=== PATIENT | female | born 1985 | race Caucasian/White ===

== ENCOUNTER 2022-03-18 10:00 | Outpatient (CLI) | payer MEDICAID, SELFPAY ==
[2022-03-18 11:57] LABS: Glucose 1 Hour PP 50gm Dose 204 mg/dL
[2022-03-18 12:34] LABS: HIV 1/2 Ab P24 Ag Result Negative (Negative)
[2022-03-18 12:47] LABS: Hepatitis B Surface Antigen Negative (Negative); Rubella IgG Antibody 70.4 IU/ML
[2022-03-21 11:46] LABS: CMV IgG Antibody <0.60 U/mL (<0.60)
== END 2022-03-18 10:01 | disposition home or self-care (01) ==
LOC: ANHLAB 10:02
PROVIDERS: Visit Provider Obstetrics & Gynecology
DX: N94.89 Other specified conditions associated with female genital organs and menstrual cycle (principal)
CPT/HCPCS: 36415; 82947; 84702; 86644; 86703; 86747; 86762; 86850; 87086; 87340; G0432

== ENCOUNTER 2022-03-21 13:51 | Outpatient (CLI) | payer MEDICAID, SELFPAY | END 2022-03-21 13:52 | disposition home or self-care (01) | LOC: ANHLAB 13:52 | PROVIDERS: Visit Provider Obstetrics & Gynecology | DX: R73.09 Other abnormal glucose (principal); Z34.90 Encounter for supervision of normal pregnancy, unspecified, unspecified trimester; Z3A.00 Weeks of gestation of pregnancy not specified | CPT/HCPCS: 36415; 83036 ==

== ENCOUNTER 2022-03-30 11:15 | Outpatient (RCR) | payer MEDICAID, SELFPAY ==
[2022-03-30 11:46] LABS: Basophils Percent Auto 0.3 % (0.2-1.2); Eosinophils Absolute Auto 0.2 K/mm3 (0-0.3); Eosinophils Percent Auto 1.3 % (0-4.4); Hematocrit 29.4 % (37.0-47.0); Hemoglobin 9.9 g/dL (12.0-15.0); Immature Granulocyte Absolute 0.09 K/mm3 (0.00-0.031); Immature Granulocyte Percent A 0.8 % (0-0.5); Lymphocytes Percent Auto 15.2 % (18.3-44.2); Mean Corpuscular HGB Conc 33.7 g/dl (32-36); Mean Corpuscular Hemoglobin 29.6 pg (26-34); Mean Corpuscular Volume 87.8 fl (80-100); Mean Platelet Volume 9.2 fl (7.4-10.4); Monocytes Absolute Auto 0.7 K/mm3 (0.1-0.6); Monocytes Percent Auto 6.1 % (2.6-8.5); Neutrophils Absolute Auto 8.6 K/mm3 (1.3-6.7); Neutrophils Percent Auto 76.3 % (45.5-73.1); Platelet Count Result 368 k/mm3 (150-375); Red Blood Count 3.35 M/mm3 (4.2-5.4); White Blood Count 11.2 K/mm3 (4.5-10.0)
[2022-03-31 07:25] LABS: Rapid Plasma Reagin Non-Reactive (NonReactive)
[2022-03-31] MEDS: RHO(D) IMMUNE GLOBULIN 300 MCG/2 ML SYRINGE IM (14:08)
== END 2022-03-31 15:00 | disposition home or self-care (01) ==
LOC: ANHOBOP 11:15
PROVIDERS: Visit Provider Obstetrics & Gynecology
DX: Z29.13 Encounter for prophylactic Rho(D) immune globulin (principal); O36.0190 Maternal care for anti-D [Rh] antibodies, unspecified trimester, not applicable or unspecified; Z3A.00 Weeks of gestation of pregnancy not specified
CPT/HCPCS: 36415; 85025; 85461; 86592; 86787; 86900; 86901; 90384; 96372; 99199; J2790

== ENCOUNTER 2022-04-03 15:02 | Outpatient (RCR) | payer MEDICAID, SELFPAY ==
[2022-04-03 15:52] VITALS: BP 126/81; PULSE 94
== END 2022-06-01 10:04 | disposition home or self-care (01) ==
LOC: ANHOBOP 15:02
PROVIDERS: Visit Provider Obstetrics & Gynecology
DX: O36.8130 Decreased fetal movements, third trimester, not applicable or unspecified (principal); Z3A.31 31 weeks gestation of pregnancy
CPT/HCPCS: 59025

== ENCOUNTER 2022-05-24 19:22 | Inpatient (IN) | payer OTHER, SELFPAY ==
[2022-05-24] VITALS (13 sets, daily range): BP systolic 135–156; BP diastolic 84–96; PULSE 73–88; TEMP 36.9–37; BMI 44.2
[2022-05-24 20:16] LABS: Glucose Point of Care 125 mg/dl (65-105)
[2022-05-24 20:19] LABS: Basophils Percent Auto 0.3 % (0.2-1.2); Eosinophils Absolute Auto 0.1 K/mm3 (0-0.3); Eosinophils Percent Auto 0.9 % (0-4.4); Hematocrit 31.9 % (37.0-47.0); Hemoglobin 10.6 g/dL (12.0-15.0); Immature Granulocyte Absolute 0.12 K/mm3 (0.00-0.031); Lymphocytes Absolute Auto 1.81 K/mm3 (0.9-3.2); Lymphocytes Percent Auto 15.6 % (18.3-44.2); Mean Corpuscular HGB Conc 33.2 g/dl (32-36); Mean Corpuscular Hemoglobin 29.4 pg (26-34); Mean Corpuscular Volume 88.6 fl (80-100); Mean Platelet Volume 9.6 fl (7.4-10.4); Monocytes Absolute Auto 0.9 K/mm3 (0.1-0.6); Monocytes Percent Auto 7.5 % (2.6-8.5); Neutrophils Absolute Auto 8.6 K/mm3 (1.3-6.7); Neutrophils Percent Auto 74.7 % (45.5-73.1); Platelet Count Result 347 k/mm3 (150-375); Red Cell Distribution Width 13.4 % (11.5-14.5); White Blood Count 11.6 K/mm3 (4.5-10.0)
--- NOTE | 2022-05-24 20:26 | LDADM ---
This patient, Fatimah Cho, was admitted to Labor/Delivery/Recovery 109 on 05/24/22 at 19:22. Plans for labor, pain management and were discussed with patient. Patient/family oriented to hospital policies and general routines including ID bracelet, bed and alarms, visiting hours, pain management, procedures, bathroom and other care routines, personal items, smoking policy, room service/diet and guest tray routines, infant security routines, and visiting hours. Patient/Family are encouraged to report perceived risks to care and to ask questions if they do not understand what they are told or what they should do. See OBIX for further documentation.
--- NOTE | 2022-05-24 20:45 | WPDANESEPP ---
Anes - Eval Pre Procedure Procedure: Labor epidural Date/Time: 05/24/22 20:45 Pre Op Diagnosis: IOL Patient Data Age: 36 Gender: F Height: 1.63 m Weight: 117 kg Last Vital Signs O2 Del Method Room Air 05/24/22 20:24 Allergies Allergy/AdvReac Type Severity Reaction Status Date / Time cat dander Allergy Difficulty Verified 05/19/22 09:48 Breathing tramadol AdvReac Unknown Nightmare Verified 05/19/22 09:48 Home Medications Medication Instructions Recorded Confirmed Type albuterol sulfate 90 mcg/actuation 1 inh inhalation Q4H PRN shortness 03/17/22 05/24/22 Rx aerosol inhaler (ProAir HFA) of breath or wheezing #8.5 grams budesonide-formoterol HFA 160 2 puff inhalation Q12H #10.2 grams 03/17/22 05/24/22 Rx mcg-4.5 mcg/actuation aerosol inhaler (Symbicort) ferrous sulfate 325 mg (65 mg 325 mg PO BID 05/10/22 05/24/22 History iron) tablet,delayed release insulin NPH-regular 70-30 U-100 8 unit subcut QAM 05/10/22 05/24/22 History insulin 100 unit/mL subcutaneous pen (Humulin 70/30 U-100 KwikPen) insulin NPH-regular 70-30 U-100 26 unit subcut HS 05/10/22 05/24/22 History insulin 100 unit/mL subcutaneous pen (Humulin 70/30 U-100 KwikPen) insulin lispro 100 unit/mL 4 unit subcut BID 05/10/22 05/24/22 History subcutaneous pen (Humalog KwikPen (U-100) Insulin) prenat.vits,tracy,[id number] 1 tablet PO DAILY 05/10/22 05/24/22 History Laboratory Tests 05/24/22 05/24/22 05/24/22 20:05 20:05 20:05 WBC 11.6 K/mm3 H K/mm3 (4.5-10.0) RBC 3.60 M/mm3 L M/mm3 (4.2-5.4) Hgb 10.6 g/dL L g/dL (12.0-15.0) Hct 31.9 % L % (37.0-47.0) MCV 88.6 fl fl (80-100) MCH 29.4 pg pg (26-34) MCHC 33.2 g/dl g/dl (32-36) RDW 13.4 % % (11.5-14.5) Plt Count 347 k/mm3 k/mm3 (150-375) MPV 9.6 fl fl (7.4-10.4) Immature Gran % (Auto) 1.0 % H % (0-0.5) Neut % (Auto) 74.7 % H % (45.5-73.1) Lymph % (Auto) 15.6 % L % (18.3-44.2) [place] % (Auto) 7.5 % % (2.6-8.5) Eos % (Auto) 0.9 % % (0-4.4) Baso % (Auto) 0.3 % % (0.2-1.2) Lymph # (Auto) 1.81 K/mm3 K/mm3 (0.9-3.2) [place] # (Auto) 0.9 K/mm3 H K/mm3 (0.1-0.6) Eos # (Auto) 0.1 K/mm3 K/mm3 (0-0.3) Baso # (Auto) 0.0 K/mm3 K/mm3 (0.0-0.1) Abs Immat Gran (auto) 0.12 K/mm3 H K/mm3 (0.00-0.031) Absolute Neuts (auto) 8.6 K/mm3 H K/mm3 (1.3-6.7) Absolute Nucleated RBC 0.0 K/mm3 K/mm3 (0.0-0.012) Nucleated RBC % 0.0 % % (0.0-0.2) POC Capillary Glucose RPR Pending Blood Type Pending Antibody Screen Pending 05/24/22 20:08 WBC RBC Hgb Hct MCV MCH MCHC RDW Plt Count MPV Immature Gran % (Auto) Neut % (Auto) Lymph % (Auto) [place] % (Auto) Eos % (Auto) Baso % (Auto) Lymph # (Auto) [place] # (Auto) Eos # (Auto) Baso # (Auto) Abs Immat Gran (auto) Absolute Neuts (auto) Absolute Nucleated RBC Nucleated RBC % POC Capillary Glucose 125 mg/dl H mg/dl (65-105) RPR Blood Type Antibody Screen Patient hx anesthesia problems: none Family hx anesthesia problems: none Results Review: All pre-operative results and documents have been reviewed as part of the pre-operative evaluation. [facility] Past Medical History Medical History Suppression, menstruation Family History Family History Father Cerebrovascular accident Congestive heart failure Mother Hypertension Sibling Diabetes mellitus Sibling History of IBS Endometriosis Other Patient's father
[2022-05-24] MEDS: LACTATED RINGERS 1,000 ML 125 ML IV CONT (21:00)
[2022-05-24] MEDS: OXYTOCIN 30 UNITS/NS 500 ML 30 UNITS/500 ML BAG IV CONT (21:00)
[2022-05-25] VITALS (170 sets, daily range): BP systolic 110–194; BP diastolic 59–123; PULSE 61–100; RESP 18; TEMP 36.8–37; O2SAT 78–100
[2022-05-25 00:57] LABS: Glucose Point of Care 101 mg/dl (65-105)
[2022-05-25 01:47] LABS: HIV 1/2 Ab P24 Ag Result Negative (Negative)
[2022-05-25] MEDS: LACTATED RINGERS 1,000 ML 125 ML IV CONT (02:38)
[2022-05-25] MEDS: ACETAMINOPHEN 500 MG TABLET 1000 MG PO (04:29)
[2022-05-25 05:31] LABS: Rapid Plasma Reagin Non-Reactive (NonReactive)
[2022-05-25 06:23] LABS: Glucose Point of Care 99 mg/dl (65-105)
--- NOTE | 2022-05-25 06:52 | PM.IMHP ---
H&P: HPI History of Present Illness Date/Time: 05/25/22 06:40 Chief Complaint: induction of labor Narrative: Fatimah is a 36yo @ 38.3wks who presented to clinic today after being diagnosed with oligohydramnios at [facility] [place] of 4cm. She does report possible leakage of fluid. She has A2GDM and has been co-managed by [facility] as she is on insulin. She has also been undergoing routine care. She reports irregular contractions. No vaginal bleeding. Good movement. Her is complicated by: - AMA; NIPT LR male - A2GDM on insulin - Late PNC starting at 28wks - Rh negative s/p rhogam - Oligohydramnios; [place] 4 Review of Systems Review of Systems: All systems reviewed & are unremarkable except as noted in HPI and below PMFSH Past Medical History Medical History Suppression, menstruation Family History Family History Father Cerebrovascular accident Congestive heart failure Mother Hypertension Sibling Diabetes mellitus Sibling History of IBS Endometriosis Other Patient's father is Social History Social History Smoking status: Never smoker Substance use: current Last use: 05/09/22--takes eatables for anxiety/depression Spiritual care concerns: No Meds Home Medications and Allergies Home Medications Medication Instructions Recorded Confirmed Type albuterol sulfate 90 mcg/actuation 1 inh inhalation Q4H PRN shortness 03/17/22 05/24/22 Rx aerosol inhaler (ProAir HFA) of breath or wheezing #8.5 grams budesonide-formoterol HFA 160 2 puff inhalation Q12H #10.2 grams 03/17/22 05/24/22 Rx mcg-4.5 mcg/actuation aerosol inhaler (Symbicort) ferrous sulfate 325 mg (65 mg 325 mg PO BID 05/10/22 05/24/22 History iron) tablet,delayed release insulin NPH-regular 70-30 U-100 8 unit subcut QAM 05/10/22 05/24/22 History insulin 100 unit/mL subcutaneous pen (Humulin 70/30 U-100 KwikPen) insulin NPH-regular 70-30 U-100 26 unit subcut HS 05/10/22 05/24/22 History insulin 100 unit/mL subcutaneous pen (Humulin 70/30 U-100 KwikPen) insulin lispro 100 unit/mL 4 unit subcut BID 05/10/22 05/24/22 History subcutaneous pen (Humalog KwikPen (U-100) Insulin) prenat.vits,tracy,[id number] 1 tablet PO DAILY 05/10/22 05/24/22 History Allergies Allergy/AdvReac Type Severity Reaction Status Date / Time cat dander Allergy Difficulty Verified 05/19/22 09:48 Breathing tramadol AdvReac Unknown Nightmare Verified 05/19/22 09:48 Exam Const: General: cooperative, comfortable and no acute distress Nutritional Appearance: obese Resp: Effort & Inspection: normal respiratory effort Cardio: Rate: regular rate GI: GI Palp: No abdominal tenderness and Yes Soft to palpation : Other: FHT's: 130's/mod hina/ + accels/ no decels - cat 1 TOCO: irregular ctx's Cervix: 3/thick/-3 Membranes: AROM, scant, clear @ 0645 on 05/25/22, GBS Neg Presentation: cephalic Skin: General skin exam: normal color Neuro: General: patient oriented x3 Psych: Appearance: grossly normal Affect: normal affect Attitude: cooperative Assessment and Plan Assessment and plan (1) Oligohydramnios: Qualifiers: Fetus number: single or unspecified fetus Trimester: third trimester Qualified Code(s): O41.03X0 - Oligohydramnios, third trimester, not applicable or unspecified Code(s): O41.00X0 - Oligohydramnios, unspecified trimester, not applicable or unspecified Status: Acute (2) Gestational diabetes mellitus (GDM): Qualifiers: Gestational diabetes mellitus control: insulin-controlled Trimester: third trimester Qualified Code(s): O24.414 - Gestational diabetes mellitus in , insulin controlled Code(s): O24.419 - Gestational diabetes mellitus in preg
--- NOTE | 2022-05-25 06:53 | WPDHPUPDATE1 ---
History and Physical Update Update Date/Time: 05/25/22 06:53 History and Physical has been reviewed, including an updated exam of the patient. There are NO changes in the patient's condition. Risks, benefits, and alternatives have been discussed and questions answered. Patient agrees to proceed with procedure.
[2022-05-25] MEDS: SODIUM CHLORIDE 0.9% IV 300 ML 600 ML I-UTERINE (09:45)
--- NOTE | 2022-05-25 10:46 | P.PCNOB_ITS ---
OB - Delivery Note Procedure Delivery date: 05/25/22 Events: Gestational Diabetes and Oligohydramnios Induction method: Per Pitocin Protocol Delivery augmentation: Rupture of Membranes Delivery monitor: External FHT and Internal Uterine Route of delivery: Laceration Description: Perineal - 1st Degree Delivery repair: vicryl Specimen: Yes (placenta) Quantitative Blood Loss (ml): 200 Anesthesia type: Epidural Disposition: Floor Baby Date of : 05/25/22 Time of : 10:27 Weeks of gestation at delivery: 38 (.4) Infant gender: Male Weight (pounds): 7 Weight (ounces): 3 presentation: vertex position: Left Occiput Anterior Placenta delivery description: Expressed Cord Vessel Description: 3 Vessels, Clamped/Cut and Delayed Cord Clamping score one minute: 8 score five minutes: 9 Narrative: Fatimah rapidly progressed to complete dilation with strong desire to push. She pushed for approximately 20 minutes with good maternal effort. She delivered the head over intact perineum. She easily delivered the infant's shoulders and body without complication. The infant was immediately placed skin to skin and had good cry. Delayed cord clamping was performed. The umbilical cord was then clamped and cut. A segment of the cord was collected f or cord gases. The remaining cord blood was collected for typing. With Pitocin running and gentle downward traction the cord, the placenta delivered without complications. Good fundal tone with minimal bleeding was noted. She was examined and a first-degree perineal laceration was noted. The first-degree was repaired in the normal fashion using 2-0 Vicryl. Good hemostasis was noted. Patient did have a large skin tag noted on the left mons which she desired to have removed. Skin tag was elevated using pickups and cut off at its base. Sponge, lap, instrument, and needle counts were correct at the end of the procedure. Mom and baby were left bonding in the birthing suite in stable condition. [facility] Delivery Billing Delivery Delivery: Delivery Charge
[2022-05-25] MEDS: OXYTOCIN 30 UNITS/NS 500 ML 30 UNITS/500 ML BAG 125 UNITS IV CONT (10:51)
[2022-05-25] MEDS: IBUPROFEN 600 MG TABLET PO ×2 (11:51→20:12)
--- NOTE | 2022-05-25 14:30 | PC.NURSE ---
Patient transferred to post room #280 via wheelchair. Support person present. Oriented to unit, room, information board, rooming in, admission packet and security measures. Patient verbalizes understanding.
[2022-05-25] MEDS: ACETAMINOPHEN 325 MG TABLET 650 MG PO ×2 (16:23→23:40)
[2022-05-25] MEDS: FLUTICASONE/SALMETEROL 115-21 MCG INHALER 1 PUFF 2 PUFF INHALATION (21:05)
[2022-05-26 04:00] VITALS: BP 130/83; PULSE 75; RESP 18; TEMP 36.7
[2022-05-26] MEDS: IBUPROFEN 600 MG TABLET PO (04:01)
[2022-05-26 04:59] LABS: Hematocrit 30.3 % (37.0-47.0); Hemoglobin 10.1 g/dL (12.0-15.0)
--- NOTE | 2022-05-26 07:10 | PM.OBPNVD ---
OB - PN: Subj Subjective Date/time seen: 05/26/22 07:10 Narrative: PPD#1 Fatimah reports doing well today. 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 Her pain is controlled, is having back spasms though. She is tolerating regular diet, voiding, passing gas, and ambulating without issues. She is breast feeding. She would like her son circumcised. OB - PN: Obj Data Labs CBC & Chem 7: 05/26/22 04:00 Labs: Laboratory Results - last 24 hr 05/26/22 05/26/22 04:00 04:00 Hgb 10.1 L Hct 30.3 L Blood Type O Negative Antibody Screen Positive ANDREWS, IgG Interpret Not Performed ANDREWS, Poly Interpret Negative ANDREWS, Complement Interp Not Performed OB - PN A/P Assessment and Plan (1) Normal vaginal delivery of second : Code(s): O80 - Encounter for full-term uncomplicated delivery Status: Acute Plan day: 1 Plan: routine care and discharge home Comments: - Pelvic rest; take meds as prescribed - ER return precautions: fever, n/v/abd pain, bleeding, HTN Time Spent With Patient Time: Total time spent is greater than 50% in coordination of care (as documented) at patient's floor/unit and/or counseling patient: Review of Systems Constitutional: Constitutional: Denies chills, Denies fever(s) and Denies headache(s) Eyes: Eyes: Denies change in vision ENT: Denies dizziness and Denies headache(s) Cardiovascular: Cardiovascular: Denies chest pain, Denies palpitations and Denies dyspnea Respiratory: Respiratory: Denies cough and Denies dyspnea Gastrointestinal: Gastrointestinal: Denies nausea and Denies vomiting Neurologic: Denies dizziness and Denies headache(s) Endocrine: Endocrine: Denies palpitations Exam Const: General: cooperative, comfortable and no acute distress Orientation/consciousness: patient oriented x3 Resp: Effort & Inspection: normal respiratory effort Auscultation: clear to auscultation bilaterally Cardio: Rate: regular rate GI: Inspection: non-distended GI Palp: No abdominal tenderness and Yes Soft to palpation Auscultation: normal bowel sounds : Other: fundus firm Skin: General skin exam: normal color Neuro: General: patient oriented x3 Extrem: General: normal to inspection Psych: Appearance: grossly normal Affect: normal affect Attitude: cooperative
[2022-05-26 08:05] VITALS: BP 136/83; PULSE 81; RESP 16; TEMP 36.9; O2SAT 99
[2022-05-26] MEDS: FLUTICASONE/SALMETEROL 115-21 MCG INHALER 1 PUFF 2 PUFF INHALATION (09:18)
[2022-05-26] MEDS: CYCLOBENZAPRINE HCL 10 MG TABLET PO (10:21)
[2022-05-26] MEDS: MULTIVIT/MIN/PREN/FOL AC/IRON TABLET 1 TAB PO (10:21)
[2022-05-26] MEDS: DOCUSATE SODIUM 100 MG CAPSULE PO (10:21)
[2022-05-26] MEDS: RHO(D) IMMUNE GLOBULIN 300 MCG/2 ML SYRINGE IM (12:03)
[2022-05-26] MEDS: TETANUS,DIPHTHERIA,AC PERTUSSIS ADULT (0.5 ML) BOOSTRIX IM (12:03)
--- NOTE | 2022-05-26 12:44 | WPDANLDPN2 ---
Anes-Prog Note L&D Date/Time: 05/26/22 12:44 Neuro status: Neuro function grossly intact. Cardiovascular status: normal Respiratory status: normal Airway patency: baseline Mental status: baseline Post-Op hydration status: normal Vital Signs: Last Vital Signs Temp 36.9 C 05/26/22 08:05 Pulse 81 05/26/22 08:05 Resp 16 05/26/22 08:05 BP 136/83 05/26/22 08:05 Pulse Ox 99 05/26/22 08:05 O2 Del Method Room Air 05/26/22 04:00 Pain score (VAS): 3, patient states having back spasms which have recently been treated with medication I/O: Intake & Output 05/25/22 05/26/22 05/26/22 23:59 07:59 15:59 Intake Total 240 Balance 240 Post-procedural complaints: none Patient feedback: Patient satisfied with anesthetic care.
--- NOTE | 2022-05-26 12:52 | PC.NURSE ---
[id number] Introductions were made, then consulted with patient to assess needs related to . Mother led the conversation with her?plans to feed?her infant and is demonstrating holding her infant in a cradle position, using a nipple shield, 's nose smashed into her breast and is sleeping. Resources provided for inpatient and outpatient services using a resource guide and mom/baby guide. RN encouraged offering assistance waking her infant to breastfeed. Mother voiced understanding of information and requested assistance. Encouraged understanding of the benefits of skin to skin (unwrapping and placing vertically on her chest), responsive feeding and how to watch for early feeding signs, frequency of feeding on demand about every 8-12 times in 24 hours (every 2-3 hours), milk production, duration of feeding, hand expression, signs of adequate intake/output and how to record on the feeding sheet. Reviewed positioning and ear, shoulder, hip alignment, supporting the breast, asymmetrical latch (off-center), and leading with the chin with a big open side gape. Infant will wake and demonstrate minimum feeding cues. Nipple shield provided to mother prior to RN meeting her due to ineffective . Reviewed good handwashing, cleaning the nipple shield and application. Discussed with mom the nipple shield precautions, possible complications associated with the risks and benefits. Reviewed practicing with a nipple shield, then without and how to protect the milk supply and production. Mom voiced understanding of the importance of hand expression, nipple stimulation and initiating a pumping schedule if continues to nurse with the shield. Mother has her personal pump and wants to pump at home. Instructions given on cleaning, care, usage, that there should be no pain, pumping schedule for milk production, collection, and storage of human milk. Parents are encouraged to record pumping schedule on the feeding sheet. For adequate milk production every 3 hours (8 times in 24 hours) 1-2 times at night. Mother doesn't want to pump at this time. Mother voiced understanding of the education shared along with mom and baby guide for additional resource information. 1213 - Consulted to assist with pumping. There's a visitor in the room and mother doesn't want to pump. RN suggested having a discussion with her primary RN regarding possibly needing supplementing or not. Primary RN reported that she is discharging patient to home with a feeding plan of attempting to breastfeed, pumping, and supplementing.
[2022-05-27 08:41] VITALS: BP 139/84; PULSE 73; RESP 20; TEMP 36.8; O2SAT 99
--- NOTE | 2022-05-28 07:14 | PM.OBDSVD ---
DS: Admitting Diagnosis Discharge Date 05/26/22 Admitting Diagnosis Oligohydramnios A2GDM AMA DS: Discharge Diagnosis Discharge Diagnosis (1) Normal vaginal delivery of second : Code(s): O80 - Encounter for full-term uncomplicated delivery Status: Acute (2) Gestational diabetes mellitus (GDM): Qualifiers: Gestational diabetes mellitus control: insulin-controlled Trimester: third trimester Qualified Code(s): O24.414 - Gestational diabetes mellitus in , insulin controlled Code(s): O24.419 - Gestational diabetes mellitus in , unspecified control Status: Acute (3) Oligohydramnios: Qualifiers: Fetus number: single or unspecified fetus Trimester: third trimester Qualified Code(s): O41.03X0 - Oligohydramnios, third trimester, not applicable or unspecified Code(s): O41.00X0 - Oligohydramnios, unspecified trimester, not applicable or unspecified Status: Acute OB - DS: Summary OB Procedures : NST and Ultrasound OB Procedures Intrapartum: Spontaneous Vag Delivery OB Procedures: : RHo (D) lg Peripartum Data Delivery Method: Natural Vaginal Laceration Description: None complications: none [place] 1: Gender: Male Disposition of : home Status at Discharge Functional status at discharge: independent ambulation Overall status at discharge: patient is back to baseline Time Spent with Patient Time attestation: Total time spent providing and/or coordinating discharge services: Time spent: Less than 30 minutes Exam Const: General: cooperative, comfortable and no acute distress Nutritional Appearance: obese Orientation/consciousness: patient oriented x3 Resp: Effort & Inspection: normal respiratory effort Auscultation: clear to auscultation bilaterally Cardio: Rate: regular rate GI: Inspection: non-distended GI Palp: No abdominal tenderness and Yes Soft to palpation Auscultation: normal bowel sounds : Other: fundus firm Skin: General skin exam: normal color Neuro: General: patient oriented x3 Extrem: General: normal to inspection Psych: Appearance: grossly normal Affect: normal affect Attitude: cooperative DS: Data Data Completed and Pending Completed studies during hospitalization: Pending at discharge 05/25/22 11:00 Surgical [PTH] Routine Discharge Plan Discharge Attending physician on discharge: Tiffany Mae Consulting providers: Anjali Reza ; Anjali Salomon Discharging Clinician: Tiffany Mae Anticipated Discharge Date/Time: 05/26/22 15:00 Patient Disposition: Home, Self-Care Activity: may shower Diet: regular Discharge Instructions: Education: Mom and Baby Guide Given to: Mother Follow-Up: Call your delivering provider's office for an appointment to be seen in: 4 Weeks [facility]. Appointment Date/Time: May 27, 2022 at 8:00 am What to expect at your follow-up visit: Physical Assessment Call [phone] if you are unable to keep your appointment time. BREAST CARE: * Wear a snug supportive bra. * For engorgement discomfort: Breast Feeding: * Apply warm moist washcloths * Express milk as needed to relieve engorgement * Wear loose clothing * For sore nipples: * Identify correct latch-on * Apply warm moist washcloths before and after nursing * Air dry nipples after nursing * May apply Lansinoh cream to nipples PERINEAL CARE: * Until bleeding stops, use your zion bottle after urinating * Change your pad frequently throughout the day * You may take sitz baths several times a day (fill your bathtub with warm water and soak for 20 minutes.) Do NOT bathe in the water * No tub baths until seen by your physician - You may shower ACTIVITY: * Rest as much
== END 2022-05-26 14:00 | disposition home or self-care (01) | DRG 560 ==
LOC: ANHLDR 19:26 → ANHOB2 05-25 14:37
PROVIDERS: Admitting Provider Obstetrics & Gynecology; PCP Registered Nurse; Visit Provider Obstetrics & Gynecology
DX: O41.03X0 Oligohydramnios, third trimester, not applicable or unspecified (principal); O24.424 Gestational diabetes mellitus in childbirth, insulin controlled; F32.A Depression, unspecified; F41.8 Other specified anxiety disorders; O99.344 Other mental disorders complicating childbirth; O70.0 First degree perineal laceration during delivery; Z3A.38 38 weeks gestation of pregnancy; Z37.0 Single live birth; L91.8 Other hypertrophic disorders of the skin
CPT/HCPCS: 36415; 82948; 84112; 85014; 85018; 85025; 85461; 86592; 86703; 86850; 86880; 86900; 86901; 86902; 88307; 90384; 90715; 94640; A9270; G0432; J2590; J2790; J2795; J7030; J7120

== ENCOUNTER 2022-07-20 12:30 | Outpatient (CLI) | payer OTHER, SELFPAY ==
[2022-07-20 13:57] LABS: Beta HCG Quantitative < 2.39 mIU/ML
== END 2022-07-20 12:31 | disposition home or self-care (01) ==
PROVIDERS: PCP Registered Nurse; Visit Provider Obstetrics & Gynecology
DX: N92.6 Irregular menstruation, unspecified (principal)
CPT/HCPCS: 36415; 84702

== ENCOUNTER 2022-12-17 03:23 | Emergency (ER) | payer OTHER, SELFPAY ==
[2022-12-17 03:24] VITALS: BP 139/91; PULSE 87; RESP 18; TEMP 36.4; O2SAT 100
--- NOTE | 2022-12-17 04:14 | ED.GENADULT ---
HPI - General Adult General Chief complaint: Upper Respiratory Infection Stated complaint: sinus infection Time Seen by Provider: 12/17/22 04:07 History of Present Illness HPI narrative: Patient 37-year-old female who presents the emergency department with chief complaint of sinus infection. Patient reports that she started having sinus pressure and nasal drainage about 2 weeks ago. The patient states that she had recently been treated with amoxicillin for dental infection and reports that she had a low-dose steroid treatment about 2 weeks ago. Patient reports having a lot of nasal congestion and reports she had purulent drainage from her nose. The patient reports significant pressure in her nose and sinuses the patient reports that she also has a child that is sick with an upper respiratory infection. Related Data Home Medications Medication Instructions Recorded Confirmed prenat.vits,tracy,[id number] 1 tablet PO DAILY 05/10/22 09/01/22 Allergies Allergy/AdvReac Type Severity Reaction Status Date / Time cat dander Allergy Difficulty Verified 12/17/22 03:23 Breathing tramadol AdvReac Unknown Nightmare Verified 12/17/22 03:23 Review of Systems Review of Systems: A 10 system review of systems was completed on the patient and is negative except for what is stated in the HPI. Nursing and ancillary documentation was reviewed. [facility] Past Medical History Medical History Irregular menstrual cycle Suppression, menstruation Family History Family History Father Cerebrovascular accident Congestive heart failure Mother Hypertension Sibling Diabetes mellitus Sibling History of IBS Endometriosis Other Patient's father is Social History Social History Smoking status: Never smoker Substance use: current Last use: 05/09/22--takes eatables for anxiety/depression Spiritual care concerns: No Exam Narrative: GENERAL: Well-appearing, well-nourished, and in no acute distress. HEAD: Normocephalic, atraumatic. EYES: PERRLA and EOMI. ENT: Nares clear, no rhinorrhea or epistaxis. Mucous membranes moist. Tenderness to palpation of the right maxillary sinus NECK: Supple. CHEST: Clear to auscultation. No respiratory distress. HEART: Regular rate and rhythm. No murmur heard. Normal peripheral pulses. ABDOMEN: Soft, nontender, nondistended, normal active bowel sounds. EXTREMITIES: Normal range of motion. No edema. SKIN: Warm, dry, no rash. NEURO: No focal deficits. Alert and oriented x3. PSYCH: Normal mood and affect. Course Vital Signs Vital signs: Vital Signs Temperature 36.4 C L 12/17/22 03:24 Pulse Rate 87 12/17/22 03:24 Respiratory Rate 18 12/17/22 03:24 Blood Pressure 139/91 H 12/17/22 03:24 Pulse Oximetry 100 12/17/22 03:24 Oxygen Delivery Room Air 12/17/22 03:24 Temperature 36.4 C L 12/17/22 03:24 Pulse Rate 87 12/17/22 03:24 Respiratory Rate 18 12/17/22 03:24 Blood Pressure 139/91 H 12/17/22 03:24 Pulse Oximetry 100 12/17/22 03:24 Oxygen Delivery Room Air 12/17/22 03:24 Medical Decision Making MDM Narrative Medical decision making narrative: Differential diagnosis upper respiratory infection, acute bacterial sinusitis. The patient will be started on a steroid pulse and will be started on Augmentin Given the symptoms have been ongoing for greater than 2 weeks the patient is at risk for bacterial sinusitis. Vital Signs Vital Signs: Vital Signs Temperature 36.4 C L 12/17/22 03:24 Pulse Rate 87 12/17/22 03:24 Respiratory Rate 18 12/17/22 03:24 Blood Pressure 139/91 H 12/17/22 03:24 Pulse Oximetry 100 12/17/22 03:24 Oxygen Delivery Room Air 12/17/22 03:24 Temperature 36.4 C L 12/17/22 03:24 Pulse Rate 87 12/17/22 03
[2022-12-17] MEDS: predniSONE 20 MG TABLET 60 MG PO (04:22)
[2022-12-17] MEDS: AMOXICILLIN/CLAVULANATE K 875-125 MG TAB 1 TABLET PO (04:23)
== END 2022-12-17 04:29 | disposition home or self-care (01) ==
LOC: ANHED 04:20
PROVIDERS: Emergency Provider Emergency Medicine; PCP Registered Nurse
DX: J01.90 Acute sinusitis, unspecified (principal); B96.89 Other specified bacterial agents as the cause of diseases classified elsewhere
CPT/HCPCS: 99283; A9270; J7512

== ENCOUNTER 2023-04-24 13:05 | Emergency (ER) | payer OTHER, SELFPAY ==
[2023-04-24 14:14] VITALS: BP 137/77; PULSE 86; RESP 16; TEMP 36.9; O2SAT 99
[2023-04-24 15:30] LABS: Strep Group A RT-PCR DETECTED (Negative)
[2023-04-24 15:35] LABS: Influenza A QL RT-PCR Negative (Negative); Influenza B QL RT-PCR Negative (Negative); SARS-CoV-2 RNA PCR Negative (Negative)
--- NOTE | 2023-04-24 16:20 | ED.GENADULT ---
HPI - General Adult General Chief complaint: Upper Respiratory Infection Stated complaint: fever/st/coe/cough/gerd Time Seen by Provider: 04/24/23 14:27 History of Present Illness HPI narrative: Patient is a 37-year-old female who presents ER with sore throat. Ongoing for 3 days. Associated with fever. Also reports mild acid reflux. No new dyspnea. She has done some home COVID test that were negative. Has pain with swallowing. Related Data Home Medications Medication Instructions Recorded Confirmed albuterol sulfate 90 mcg/actuation 1 puff inhalation Q4H PRN 03/28/23 03/28/23 aerosol inhaler (ProAir HFA) bupropion HCl 150 mg 24 hr tablet, 150 mg PO QAM 03/28/23 03/28/23 extended release levonorgestrel 21 mcg/24 hours (8 1 device intrauterine ONCE 03/28/23 03/28/23 yrs) 52 mg intrauterine device (Mirena) ondansetron HCl 4 mg tablet 4 mg PO Q8H PRN 03/28/23 03/28/23 tiotropium bromide 18 mcg capsule 1 cap inhalation DAILY 03/28/23 03/28/23 with inhalation device (Spiriva with HandiHaler) topiramate 25 mg tablet (Topamax) 25 mg PO DAILY 03/28/23 03/28/23 venlafaxine 37.5 mg 75 mg PO DAILY 03/28/23 03/28/23 capsule,extended release 24 hr Allergies Allergy/AdvReac Type Severity Reaction Status Date / Time cat dander Allergy Difficulty Verified 04/24/23 14:28 Breathing tramadol AdvReac Unknown Nightmare Verified 04/24/23 14:28 Review of Systems Constitutional: Constitutional: Reports chills, Reports fatigue and Reports fever(s) ENT: Denies nasal congestion and Reports sore throat Gastrointestinal: Gastrointestinal: Denies abdominal pain, Reports heartburn, Denies nausea and Denies vomiting [facility] Past Medical History Medical History (Updated 04/24/23 @ 16:21 by Jose Antonio Edward MD) Claudication of both lower extremities Encounter to establish care Irregular menstrual cycle Suppression, menstruation Venous insufficiency Weight loss counseling, encounter for Surgical History Surgical History (Updated 03/28/23 @ 16:18 by Ana Cr CAMERA CONTROL OPERATOR) H/O foot surgery Family History Family History (Updated 03/28/23 @ 16:18 by Ana Cr [facility]) Father Cerebrovascular accident Congestive heart failure Diabetes mellitus Hypertension Heart disease Mother Hypertension Depression Sibling Diabetes mellitus Sibling History of IBS Endometriosis Other Patient's father is Social History Social History (Updated 03/28/23 @ 16:19 by Ana Cr [facility]) Smoking status: Never smoker Alcohol intake: current Substance use: current Last use: 05/09/22--takes eatables for anxiety/depression Lack of Transportation: No Lack of Food: Never True Current Housing: I Have Housing Concerned About Future Housing: No Difficulty Paying Gas/Electric Bills: No Difficulty Paying for Meds: No Currently Unemployed: No Education: Decline to Answer Difficulty w/ Childcare or Family Care: No Living arrangements: with family Occupation/Education: occupation Additional occupation/education comments: [employer] concerns: No Agree to blood products: Yes Exam Narrative: GENERAL: Well-appearing, well-nourished, and in no acute distress. HEAD: Normocephalic, atraumatic. ENT: Mucous membranes moist. Pharyngeal erythema with mild tonsillar hypertrophy without exudate. No uvular shift. Tolerating secretions without issue. NECK: Mild anterior cervical chain lymphadenopathy. EXTREMITIES: Normal range of motion. No edema. NEURO: Alert and oriented x3. PSYCH: Normal mood and affect. Course Course Emergency Course: Discussed diagnosis and treatment plan. Discharge home. Vital Signs Vital signs: Vital Signs Temperature 98.5 F 04/24/23 14:14 Pulse Rate 86 04/24/23 14:14 Respiratory Rate 16 04/24/23 14:14 Blood Pressure 137/77 04/24/23 14:14 Pulse Oximetry 99 04/24/23 14:14 Oxygen Delivery
== END 2023-04-24 16:37 | disposition home or self-care (01) ==
PROVIDERS: Emergency Provider Emergency Medicine; PCP Family Medicine
DX: J02.0 Streptococcal pharyngitis (principal); Z20.822 Contact with and (suspected) exposure to COVID-19; I87.2 Venous insufficiency (chronic) (peripheral); Z97.5 Presence of (intrauterine) contraceptive device
CPT/HCPCS: 87636; 87651; 99283

== ENCOUNTER 2025-01-01 07:12 | Outpatient (CLI) | payer OTHER, SELFPAY ==
--- NOTE | ~2025-01-01 | US_ITS ---
Pelvic ultrasound. Clinical History: Abdominal pain Technique: Realtime transabdominal and transvaginal scanning of the pelvis was performed. Color flow Doppler and Doppler spectral analysis were performed. Findings: The uterus is anteverted. The endometrial stripe has a thickness of 9 mm. IUD in satisfact ory position. No focal mass is identified. Small cervical nabothian cysts are present. The right ovary measures 4.7 x 2.7 x 2.3 cm. Simple right ovarian cyst measures 3.0 cm in diameter. The left ovary measures 3.2 x 2.7 x 2.6 cm. Simple left ovarian cyst measures 2.6 cm in diameter. There is no evidence of free fluid in the cul de sac. Impression: Small simple bilateral ovarian cysts, as above, largest in the right ovary measuring [address] Reviewed, dictated and finalized at location . Impression: Small simple bilateral ovarian cysts, as above, largest in the right ovary cj uring [address].
--- NOTE | ~2025-01-01 | US_ITS ---
Abdominal Sonogram: Real-time sonographic imaging of the abdomen was performed. Clinical History: Abdominal pain Findings: The liver appears echogenic, with no evidence of mass lesion or bile duct dilatation. Main portal vein demonstrates normal direction of flow. The spleen is normal in size without evidence of focal lesion. The gallbladder is well distended, and appears normal with no evidence of gallstone or wall thickening. The common bile duct measures 4 mm. The visualized pancreas, aorta, and IVC are un remarkable. The right kidney measures 12.7 cm in length and the left kidney measures 12.9 cm. There is no hydronephrosis or renal calculus. Impression: Diffuse fatty infiltration of the liver. Reviewed, dictated and finalized at location . Impression: Diffuse fatty infiltration of the liver.
--- OUTSIDE RECORDS SUMMARY | 2025-01-01 07:15 | XMS_ITS | Clinical Summary ---
Author Organization [facility] Address [facility] [facility] [address] [place] [address] Care Team Providers Care Digital Sales Director Name Role Phone Unavailable Primary Care Provider Unavailabl e Source Comments [facility],non-owned Affiliates and Associated Physician Practices is amultiple site organization consisting of ambulatory clinics and hospital sitesin [place], [place], [place] and [place]. This disclosure is being madepursuant to the Care Everywhere program and may not contain all information available regarding this patient. Last updated 18.[facility] Allergies Active Allergy Reactions Criticality Noted Date Comments Tramadol GI Discomfort,Psychiatric Medium 04/06/2022 Medications * Be aware that medications may not be up to date on this document. Alwaysverify current medications with the patient. Vit-DSS-Fe Fum-FA ( VITAMIN WITH IRON) tablet Take 1 tablet by mouth once daily Active insulin NPH pen Inject 20 units at breakfast and 20 units at bedtime 12 hours apart. Increase bedtime dose of NPH by 5 units when 2 consecutive fasting blood sugars are 90 mg/dl or above. Dispense up to a maximum of 80 units per day. 30 mL 2 04/06/20 22 Active Additional Information Patient taking differently: Inject 10 units at breakfast and 18 units at bedtime 12 hours apart. Increase bedtime dose of NPH by 5 units when 2 consecutive fasting blood sugars are 90 mg/dl or above. Dispense up to a maximum of 80 units per day., Reported on 05/04/2022 Alcohol Swabs 70 % Use as directed for insulin administration 2x per day. 100 Each 2 04/06/20 Active insulin pen needle (Novofine) 32G X 6 MM MISCIndications :Gestational diabetes mellitus (GDM) in third trimester, gestational diabetes method of control unspecified (HCC),31 weeks gestation of (HCC) 1 (one) Each by Injection route as directed 60 Each 11 04/08/20 Active ferrous sulfate 325 (65 FE) MG tablet Take 325 mg by mouth once daily Active insulin lispro (HumaLOG;ADMelo g) 100 UNIT/ML pen Inject 8 (eight) Units to 30 (thirty) Units subcutaneously as directed Start with 4 units before lunch and dinner. 15 mL 1 05/04/20 Active Insulin Pen Needle 32G X 4 MM MISC Use 1 Each 4 times daily 200 Each 2 05/04/20 Active magnesium oxide (Mag-Ox) 400 MG tabletIndicatio ns:prevention of headaches Take 1 (one) tablet by mouth once daily Reasons: prevention of headaches 30 tablet 3 05/04/20 Active Social History Tobacco Use Types Packs/Day Years Used Date Smoking Tobacco: Never Smokeless Tobacco: Never Alcohol Use Standard Drinks/Week Comments Not Currently 0 (1 standard drink = 0.6 oz pur e alcohol) Comments No Sex and Gender Information Value Date Recorded Sex Assigned at Not on file Legal Sex Female 9:14 AM CDT Gender Identity Not on file Sexual Orientation Not on file Last Filed Vital Signs Vital Sign Reading Time Taken Comments Blood Pressure 139/84 05/24/2022 1:25 PM CDT Pulse 77 05/24/2022 1:25 PM CDT Temperature - - Respiratory Rate - - Oxygen Saturation - - Inhaled Oxygen Concentration - - Weight 113.9 kg (251 lb) 05/04/2022 9:09 AM CDT Height - - Body Mass Index - - Plan of Treatment Health Maintenance Due Date Last Done Comments LIPID TESTING 1983 MAMMOGRAM 1983 PAP SMEAR 1983 HIV SCREENING 1998 HEPATITIS C SCREENING 10/26/2001 DTAP/TDAP/TD VACCINES (1 - Tdap) 2002 HEPATITIS B VACCINE (1 of 3 - 19+ 3-dose series) 2002 COVID-19 VACCINE (1 2023-2 5 season) 2024 DEPRESSION SCREENING 09/04/2024 INFLUENZA VACCINE (Season Ended) 2025 ZOSTER VACCINE (1 of 2) 2033 HIB VACCINE Aged Out No longer eligi ble based on patient's age to complete this topic HPV VACCINE Aged Out No longer eligi ble based on patient's age to complete this topic MENINGOCOCCAL (Group B) VACC INE SHARED DECISION-MAKING Aged Out No longer eligibl e based on patient's age to complete this topic MENINGOCOCCAL GROUPS A/C/Y/W VACCINE Aged Out No longer eligible b ased on patient's age to complete this topic PNEUMOCOCCAL VACCINE Aged Out No long er eligible based on patient's age to complete this topic Insurance
--- OUTSIDE RECORDS SUMMARY | 2025-01-01 07:15 | XMS_ITS | Continuity of Care Document ---
Author Organization [facility] [place] [address] [place] [address] [place] [address] Phone Care Team Providers Care Director Organizational Name Role Phone Macario OD, Ebenezer Unavailable Unavailable Procedures Procedure Date Eye Exam & Treatment Refraction Eye Exam & Treatment Refraction CL Replacement - Vistakon Disp W/BW Soft Tax - Medical Eye Exam, New Patient Advance Directives Directive Yes / No Effective Date File Name No Information Encounters Encounter Description Practice Location Reason(s) For Visit Diagnoses Date Provider Providers Copied on Encounter [facility], [address] [place] [address] [address], [place], [place], [id number], tel:[phone] [facility] No Information 8-201 0 Macario OD Ebenezer. [address] , [address], [place], [place], [facility], . tel:[phone] [facility], [address] [place] [address] [address], [place], [place], [id number], [place] tel:[phone] [facility] No Information 9-200 8 Macario OD Ebenezer. [address], [place], [place], [facility], [place]. tel:[phone] [facility], [address], [place], [place], [id number], tel:[phone] [facility] No Information Jose-1 4-200 8 Macario OD Ebenezer. [address] [facility] , [address], [place], [address], [place]. tel:[phone] [facility], [address], [place], [place], [id number], [place] tel:[phone] SEC [facility] No Information 200 7 Macario OD Ebenezer. [address] [facility] , [address], [place], [address], [place]. tel:[phone] Family History Family Member Type Diagnosis Age At Onset No Information Payers Payer name Insurance type Covered libertarian ID Authoriza tion(s) Medicaid [facility] [id number] Social History Type Description Quantity Date Captured Comments Sex Female Smoking Status No Information Chief Complaint And Reason For Visit No Information Reason For Referral Reason For Referral No Information History Of Present Illness Encounter Date Complaint History Of Prese nt Illness No Information Functional Status Date Functional Assessmen t No Information Instructions Date Instruction Additional Infor mation No Information Assessments Type Assessment Date No Information Patient Care Teams Name Effective Dates (start - stop) Status Members No Information
== END 2025-01-01 07:13 | disposition home or self-care (01) ==
PROVIDERS: PCP Nurse Practitioner Family; Visit Provider Nurse Practitioner Family
DX: N83.201 Unspecified ovarian cyst, right side (principal); N83.202 Unspecified ovarian cyst, left side; Z97.5 Presence of (intrauterine) contraceptive device
CPT/HCPCS: 76700; 76830; 76856

== ENCOUNTER 2025-09-01 23:28 | Emergency (ER) | payer OTHER, SELFPAY ==
--- NOTE | ~2025-09-01 | XR_ITS ---
XR toe 5th LT min 2V 09/02/2025 00:08 Indication: Status post fall. Left fifth toe pain. Procedure: 3 views left fifth toe Comparison: No prior studies for comparison. Findings: There is an oblique minimally displaced intra-articular fracture fifth proximal phalanx extending to the interphalangeal joint. Mild soft tissue swelling. No foreign body. No other fracture. Impression: 1: Oblique minimally displaced intra-articular fracture fifth proximal phalanx extending to the IP joint. Reviewed, dictated and finalized at location O. ENGINE PUMP OPERATOR Impression: 1: Oblique minimally displaced intra-articular fracture fifth proximal phalanx extending to the IP joint.
--- NOTE | ~2025-09-01 | XR_ITS ---
Examination: XR ankle LT min 3V Clinical History: pain, s/p fall Comparison: None Technique: 4 views left ankle Findings/impression: 1. No fracture or dislocation left ankle. 2. Plate and screw arthrodesis first digit tarsometatarsal joint. Reviewed, dictated and finalized at location R. EXPERT
[2025-09-01 23:33] VITALS: BP 160/100; PULSE 86; RESP 18; TEMP 37; O2SAT 100
[2025-09-02 03:18] VITALS: BP 173/118; PULSE 80; RESP 16; TEMP 36.6; O2SAT 100
--- NOTE | 2025-09-02 03:41 | ED_ITS ---
HPI - Fall General Chief Complaint: Fall Stated Complaint: slip and fall, LOYOLA Time Seen by Provider: 09/02/25 03:27 History of Present Illness HPI Narrative: 39-year-old female presenting to the emergency department after she tripped and fell at home. Patient states she tripped over her kids trampoline toy and landed onto her left foot and hit the back of her head. Did not lose consciousness and able to get up right away. She has had a previous injury to her left pinky toe and thinks she may have broken several weeks ago or today. Has had previous surgeries in her left foot. Ambulatory without any difficulty but states that her she was bothering her without otitis. Has taken some Tylenol and ibuprofen without any symptom relief. No concussion symptoms, no loss of consciousness, no blood thinner use. She is answering all questions appropriately and otherwise well-appearing in her normal state of health. No other systemic symptoms at this time. Related Data Home Medications ?Medication ?Instructions ?Recorded ?Confirmed ?Last Taken ?Type levonorgestrel (Mirena) 1 device intrauterine ONCE 0 03/28/23 06/28/25 Unknown History ondansetron HCl 4 mg tablet 4 mg PO Q8H PRN 03/28/23 1 Unknown History dupilumab 300 mg/2 mL subcutaneous 300 mg subcut WEEKL Y 10/11/23 06/28/25 Unknown History pen injector (Dupixent) fluticasone fur. 100 mcg-umeclid 1 inh inhalation TAMELA Y 07/11/24 06/28/25 Unknown History 62.5 mcg-vilant 25 mcg inhalat.powder (Trelegy Ellipta) albuterol 90 mcg-budesonide 80 2 inh inhalation ONCE 0 05/02/25 06/28/25 Unknown History mcg/actuation HFA aerosol inhaler (Airsupra) Allergies Allergy/AdvReac Type Severity Reaction Status Date / Time cat dander Allergy Difficulty Verified 09/01/25 23:28 Breathing tramadol AdvReac Unknown Nightmare Verified 09/01/25 23:28 Review of Systems Review of Systems: As reviewed above in HPI All systems reviewed & are unremarkable except as noted in HPI and below PMFSH Past Medical History Medical History ADHD UTI (urinary tract infection) Chronic headaches Depression Obesity Weight loss counseling, encounter for Encounter to establish care Claudication of both lower extremities Venous insufficiency IUD check up insertion 07/2022 Irregular menstrual cycle Suppression, menstruation Surgical History Surgical History H/O foot surgery Family History Family History Father Cerebrovascular accident Congestive heart failure Diabetes mellitus Hypertension Heart disease Mother Hypertension Depression Sibling Diabetes mellitus Sibling History of IBS Endometriosis Other Patient's father is Social History Social History Social History: 04/29/25 Pt is very confident in filling out medical forms. Help with childcare and food Smoking status: Never smoker Alcohol intake: never Substance use: current Last use: 05/09/22--takes eatables for anxiety/depression Lack of Transportation: No Lack of Food: Never True Current Housing: I Have Housing Concerned About Future Housing: No Difficulty Paying Gas/Electric Bills: YES Difficulty Paying for Meds: YES Currently Unemployed: No Education: Associate Degree Difficulty w/ Childcare or Family Care: No Living arrangements: with family Occupation/Education: occupation Additional occupation/education comments: [employer] at [employer] Gender identity (if verbalized by the patient): Female Sexual Orientation (if Verbalized by the Patient): Straight or Heterosexual Spiritual care concerns: No Agree to blood products: Yes Exam Narrative: GENERAL: [Well-appearing, well-nourished, and in no acute distress.] HEAD: [Normocephalic, atraumatic.] EYES: [PERRLA and EOMI.] ENT: Nares clear, no rhinorrhea or epistaxis. Mucous membranes moist. NECK: Supple. CHEST: No respiratory distress EXTREMITIES: Ambulatory, normal range of motion but tenderness to palpation over the lateral left foot around the pinky toe. SKIN: Warm, dry, no rash. NEURO: [No focal deficits]. Alert and oriented [x3.] PSYCH: [Normal mood and affect.] Course Vital Signs Vital signs: Vital Signs Temperature 37.0 C 09/01/25 23:33 Pulse Rate 86 09/01/25 23:33 Respiratory Rate 18 09/01/25 23:33 Blood Pressure 160/100 H 09/01/25 23:33 Pulse Oximetry 100 09/01/25 23:33 Oxygen Delivery Room Air 09/01/25 23:33 Temperature 36.7 C 09/02/25 04:28 Pulse Rate 76 09/02/25 04:28 Respiratory Rate 17 09/02/25 04:28 Blood Pressure 164/99 H 09/02/25 04:28 Pulse Oximetry 99 09/02/25 04:28 Oxygen Delivery Room Air 09/01/25 23:33 MDM MDM Narrative Medical decision making narrative: 39-year-old female presenting to the emergency department after she tripped and fell at home. Patient states she tripped over her kids trampoline toy and landed onto her left foot and hit the back of her head. Did not lose consciousness and able to get up right away. She has had a previous injury to her left pinky toe and thinks she may have broken several weeks ago or today. Has had previous surgeries in her left foot. Ambulatory without any difficulty but states that her she was bothering her without otitis. Has taken some Tylenol and ibuprofen without any symptom relief. No concussion symptoms, no loss of consciousness, no blood thinner use. She is answering all questions appropriately and otherwise well-appearing in her normal state of health. No other systemic symptoms at this time. X-rays obtained of the foot and ankle and confirm 5th toe fracture. She is answering all questions appropriately with no signs of closed head injury and has no indications for head CT at this time. She was given Toradol for analgesia and a hard-soled shoe for comfort. Safe for discharge home at this time with prescriptions for her fracture. Given podiatry and orthopedics follow-up. Differential Diagnosis Differential Diagnosis: Contusion, toe fracture, ankle fracture, CHI. Imaging Data Attestation: I personally reviewed and interpreted this imaging study as follows: My impression: Closed fracture of the 5th toe Discharge Plan Discharge Clinical Impression: Closed fracture of fifth toe of left foot Patient Disposition: Home Condition: Stable Instructions: Antibiotic Form, Toe Fracture (ED) Additional Instructions: You have a fracture of the pinky toe on the left side which may be from 1 of the 2 injuries you have had over last 2 weeks. We will send you home with high strength pain medications to take as breakthrough agent in addition to Tylenol and ibuprofen every 6-8 hours. Wear a postop shoe or hard sole shoe for more comfortable ambulation but you do not need to be off of the foot or in a boot. Follow-up with the provided specialists. Fractures usually take 4-6 weeks to fully heal. This appears to be a non operative location but if pain gets worse or new symptoms develop discussed with the carbon capture power plant manager/orthopedic surgeon for recommendations further. Return with any emergent concerns at any time. Patient Language: Kuwaiti Prescriptions: New ibuprofen 800 mg tablet 800 mg PO TID PRN (Reason: pain) Qty: 30 0RF acetaminophen [Tylenol Extra Strength] 500 mg tablet 1,000 mg PO TID PRN (Reason: pain) Qty: 30 0RF oxycodone 5 mg tablet 5 mg PO Q8H PRN (Reason: pain) Qty: 14 0RF No Action ondansetron HCl 4 mg tablet 4 mg PO Q8H PRN Mirena 21 mcg/24 hours (8 yrs) 52 mg intrauterine device 1 device intrauterine ONCE Rx Instructions: as a single dose Trelegy Ellipta 100-62.5-25 mcg blister with device 1 inh inhalation DAILY Qulipta 60 mg tablet 60 mg PO DAILY Qty: 90 1RF Dupixent Pen 300 mg/2 mL pen injector 300 mg subcut WEEKLY Airsupra 90-80 mcg/actuation HFA aerosol inhaler 2 inh inhalation ONCE Rx Instructions: as a single dose; may repeat up to 6 doses per day (12 inhalations) sertraline 50 mg tablet 50 mg PO DAILY Qty: 90 1RF ibuprofen 600 mg tablet 600 mg PO Q6-8H Qty: 40 0RF rosuvastatin 5 mg tablet 5 mg PO DAILY Qty: 90 1RF bupropion HCl 150 mg tablet extended release 24 hr 150 mg PO QAM Qty: 90 1RF cholecalciferol (vitamin D3) 1,250 mcg (50,000 unit) tablet 1,250 mcg PO WEEKLY Qty: 12 3RF alprazolam 0.5 mg tablet 0.5 mg PO BID PRN (Reason: anxiety) Qty: 60 0RF lisdexamfetamine [Vyvanse] 30 mg capsule 30 mg PO DAILY Qty: 30 0RF Follow-up/Referrals: Nadine Grande APRN [Primary Care Provider, Family Practice] Kd Guaman Jr., DPM [Physician, Podiatry] - 3 Days Referral Note: 5th toe fracture Jose R Fernandez MD [Physician, Orthopedics] - 3 Days Referral Note: Fifth toe fracture Time of Disposition: 03:40
--- OUTSIDE RECORDS SUMMARY | 2025-09-02 03:41 | XMS_ITS | Encounter Summary ---
Author Organization [facility] Address [facility] [place] [address] Care Team Providers Care Hair Rooting Machine Operator Name Role Phone Darcy Vang Primary Care Provider [phone] Sin Storm MD Primary Care Provider [phone] Linwood Duran MD Unavailable Nadine Grande [facility] Primary Care Provider + Encounter Details Date Type Department Care Team (Late st Contact Info) Description 03/30/2022 Mad Mimi Message Enc [facility] Medical Group Family & Internal Medicine [address] [address] [place], [facility] Provider Due for routine follow up appt Social History Tobacco Use Types Packs/Day Years Used Date Smoking Tobacco: Never Smokeless Tobacco: Never Comments:non smoker Alcohol Use Standard Drinks/Week Comments Yes 2 (1 standard drink = 0.6 oz pur e alcohol) AUDIT-C Answer Date Recorded Frequency of Alcohol Consumption Monthly or less 10/08/2018 Average Number of Drinks Not on file 019 Frequency of Binge Drinking Not on file 12/2018 PHQ-2 Answer Date Recorded PHQ-2 Score - If the patient scores above 3, please move on to questions 3-9 0 01/07/2022 Education Answer Date Recorded What is the highest level of school you have completed or the highest degree you have received? Associate degree: academic program 01/22/2020 Comments No Sex and Gender Information Value Date Recorded Sex Assigned at Female 01/22/2020 3:58 PM CDT Legal Sex Female 9:55 PM CDT Gender Identity Female 01/22/2020 3:58 PM CDT Sexual Orientation Straight 01/22/2020 3: 58 PM CDT COVID-19 Exposure Response Date Recorded In the last 10 days, have yo u been in contact with someone who was confirmed or suspected to have Coronavirus/COVID-19? No / Unsure 03/15/2022 6:56 AM CDT documented as of this encounter Plan of Treatment Upcoming Encounters Date Type Department Care Team (Late st Contact Info) Description 10/06/2025 2:20 PM MACHINE II CUTTER Office Visit [facility] [address] [address] Sigifredo Greene DO [address] [place] [address] [place] [address] documented as of this encounter Visit Diagnoses Not on filedocumented in this encounter Additional Health Concerns Infection Onset Date Last Indicated Resolved Time COVID-19 Rule Out 08/26/2024 08/26/2024 08/26/2024 1:58 PM MACHINE II CUTTER Assessment Noted Time PHQ-9 Depression Total Score: 0 02/25/20 21 4:08 PM CDT documented as of this encounter Care Teams Hair Rooting Machine Operator Relationship Specialty Start Date End Date Darcy Vang APNP [address] [place], [place] [id number] PCP - General Nurse Practitioner Family 04/07/21 01/25/23 Sin Storm MD [address] [place] [address] PCP - General FAMILY PRACTICE 02/20/23 10/06/24 Nadine Grande FNP- [address] [place] [id number] PCP - General 10/07/24 Linwood Duran MD [address] [place] [address] Consulting Physician INTERNAL MEDICINE 04/05/23 documented as of this encounter
--- OUTSIDE RECORDS SUMMARY | 2025-09-02 03:41 | XMS_ITS | Encounter Summary ---
Author Organization [facility] Address [facility] [place] [address] Care Team Providers Care Manager Simulation Name Role Phone Darcy Vang Primary Care Provider [phone] Sin Storm MD Primary Care Provider [phone] Linwood Duran MD Unavailable Nadine Grande [facility] Primary Care Provider + Encounter Details Date Type Department Care Team (Late st Contact Info) Description 12/14/2021 Soricimed Message Enc [facility] Medical Group Family & Internal Medicine [address] [address] [employer] Provider results Social History Tobacco Use Types Packs/Day Years [...] please move on to questions 3-9 0 02/24/2021 Education Answer Date Recorded What is the [...] suspected to have Coronavirus/COVID-19? No / Unsure 12/10/2021 8:07 AM CDT documented as of this encounter Plan of Treatment Upcoming Encounters Date Type Department Care Team (Late st Contact Info) Description 10/06/2025 2:20 PM ENVELOPE MAKER Office Visit [facility] Medical Group Pul[facility] [address] [place] [address] Sigifredo Greene DO [address] [facility] [address] [place] [address] documented as of this encounter Visit Diagnoses Not on filedocumented in this encounter Additional Health Concerns Infection Onset Date Last Indicated Resolved Time COVID-19 Rule Out 03/15/2022 03/15/2022 03/15/2022 8:04 AM CDT COVID-19 Rule Out 08/26/2024 08/26/2024 08/26/2024 1:58 PM ENVELOPE MAKER Assessment Noted Time PHQ-9 Depression Total Score: 0 02/25/20 21 4:08 PM CDT documented as of this encounter Care Teams Manager Simulation Relationship Specialty Start Date End Date Darcy Vang APNP [address] [place] [address] PCP - General Nurse Practitioner Family 04/07/21 01/25/23 Sin Storm MD [facility] [place] [address] PCP - General FAMILY PRACTICE 02/20/23 10/06/24 Nadine Grande, GLOBAL CTO- [address] [place] [address] PCP - General 10/07/24 Linwood Duran MD [address] [place] [address] Consulting Physician INTERNAL MEDICINE 04/05/23 documented as of this encounter
--- OUTSIDE RECORDS SUMMARY | 2025-09-02 03:41 | XMS_ITS | Encounter Summary ---
Author Organization [facility] Address [address] [place] [address] Care Team Providers Care Customs Compliance Director Name Role Phone Sin Storm MD Primary Care Provider [phone] Linwood Duran MD Unavailable Nadine Grande [facility] Primary Care Provider + Encounter Details Date Type Department Care Team (Late st Contact Info) Description 03/01/2023 MyChart Message Enc [facility] Medical Group - [facility] [address] [place] [address] [facility], [facility] Provider Air Quality Message Social History Tobacco Use Types Packs/Day Years [...] Orientation Straight 01/22/2020 3: 58 PM CDT documented as of this encounter Plan of Treatment Upcoming Encounters Date Type Department Care Team (Late st Contact Info) Description 10/06/2025 2:20 PM GROUNDS KEEPER Office Visit [facility] [address] [phone] Sigifredo Greene DO [address] [facility] [address] [address] [place] [address] documented as of this encounter Visit Diagnoses Not on filedocumented in this encounter Additional Health Concerns Infection Onset Date Last Indicated Resolved Time COVID-19 Rule Out 08/26/2024 08/26/2024 08/26/2024 1:58 PM GROUNDS KEEPER Assessment Noted Time PHQ-9 Depression Total Score: 0 02/25/20 21 4:08 PM CDT documented as of this encounter Care Teams Customs Compliance Director Relationship Specialty Start Date End Date Sin Storm MD [address] [place] [address] PCP - General FAMILY PRACTICE 02/20/23 10/06/24 Nadine Grande, [facility] [address] [place] [address] PCP - General 10/07/24 Linwood Duran MD [address] [place] [address] Consulting Physician INTERNAL MEDICINE 04/05/23 documented as of this encounter
--- OUTSIDE RECORDS SUMMARY | 2025-09-02 03:41 | XMS_ITS | Encounter Summary ---
Author Organization [facility] Address [address] [place] [address] Care Team Providers Care Petroleum Engineer Name Role Phone Darcy Vang Primary Care Provider [phone] Sin Storm MD Primary Care Provider [phone] Linwood Duran MD Unavailable Nadine Grande [facility] Primary Care Provider + Encounter Details Date Type Department Care Team (Late st Contact Info) Description 10/06/2021 MyChart Message Enc [facility] Medical [facility] Clinic [address] [address] Sigifredo Greene, DO [address] [place] [address] Follow up Social History Tobacco Use Types Packs/Day Years [...] Exposure Response Date Recorded In the last month, have you been in contact with someone who was confirmed or suspected to have Coronavirus / COVID-19? Unable to assess 09/29/2021 4:49 PM WEB ARCHITECT documented as of this encounter Plan of Treatment Upcoming Encounters Date Type Department Care Team (Late st Contact Info) Description 10/06/2025 2:20 PM WEB ARCHITECT Office Visit [facility] [address] [address] Sigifredo Greene DO 3 [facility] [address] [place] [address] documented as of this encounter Visit Diagnoses Not on filedocumented in this encounter Additional Health Concerns Infection Onset Date Last Indicated Resolved Time COVID-19 Rule Out 03/15/2022 03/15/2022 03/15/2022 8:04 AM CDT COVID-19 Rule Out 08/26/2024 08/26/2024 08/26/2024 1:58 PM WEB ARCHITECT Assessment Noted Time PHQ-9 Depression Total Score: 0 02/25/20 4:08 PM CDT documented as of this encounter Care Teams Petroleum Engineer Relationship Specialty Start Date End Date Darcy Vang APNP [address] [place] [address] PCP - General Nurse Practitioner Family 04/07/21 01/25/23 Sin Storm MD [address] [place] [address] PCP - General FAMILY PRACTICE 02/20/23 10/06/24 Nadine Grande, [facility]- [address] [place] [address] PCP - General 10/07/24 Linwood Duran MD [address] [place] [address] Consulting Physician INTERNAL MEDICINE 04/05/23 documented as of this encounter
--- OUTSIDE RECORDS SUMMARY | 2025-09-02 03:41 | XMS_ITS | Encounter Summary ---
Author Organization [facility] Address [facility] [place] [address] Care Team Providers Care Solar Sales Name Role Phone Darcy Vang Primary Care Provider [phone] Sin Storm MD Primary Care Provider [phone] Linwood Duran MD Unavailable Nadine Grande [facility] Primary Care Provider + Encounter Details Date Type Department Care Team (Late st Contact Info) Description 12/10/2021 FastCAP Message Enc [facility] Medical Group Family & Internal Medicine [address] [address] [place] [facility] louSyndero, [facility] Provider results Social History Tobacco Use [...] st Contact Info) Description 10/06/2025 2:20 PM MEDICATION NURSE Office Visit [facility] Medical [facility] Pulmonology Specialty Clinic [facility] [address] [place] [address] Sigifredo Greene DO 3 [facility] [address] [place] [address] documented as of this encounter Visit Diagnoses Not on filedocumented in this encounter Additional Health Concerns Infection Onset Date Last Indicated Resolved Time COVID-19 Rule Out 03/15/2022 03/15/2022 03/15/2022 8:04 AM CDT COVID-19 Rule Out 08/26/2024 08/26/2024 08/26/2024 1:58 PM MEDICATION NURSE Assessment Noted Time PHQ-9 Depression Total Score: 0 02/25/20 21 4:08 PM CDT documented as of this encounter Care Teams Solar Sales Relationship Specialty Start Date End Date Darcy Vang APNP [address] [place] [address] PCP - General Nurse Practitioner Family 04/07/21 01/25/23 Sin Storm MD [facility] [place] [address] PCP - General FAMILY PRACTICE 02/20/23 10/06/24 Nadine Grande, [facility]- [address] [place] [address] PCP - General 10/07/24 Linwood Duran MD [address] [place] [address] Consulting Physician INTERNAL MEDICINE 04/05/23 documented as of this encounter
--- OUTSIDE RECORDS SUMMARY | 2025-09-02 03:41 | XMS_ITS | Encounter Summary ---
Author Organization [facility] Address [facility] [place] [address] Care Team Providers Care Bench Assembler Name Role Phone Darcy Vang Primary Care Provider [phone] Sin Storm MD Primary Care Provider [phone] Linwood Duran MD Unavailable Nadine Grande [facility] Primary Care Provider + Encounter Details Date Type Department Care Team (Late st Contact Info) Description 06/30/2021 Prep for Procedure [facility] Services [address] [place] [address] Toni Quintana, DPM [address] [place] [address] Social History Tobacco Use Types Packs/Day Years Used Date Smoking Tobacco: Never Smokeless Tobacco: Never Alcohol Use Standard Drinks/Week Comments Yes 2 [...] or suspected to have Coronavirus / COVID-19? No / Unsure 06/30/2021 10:13 AM CDT documented as of this encounter Plan of Treatment Upcoming Encounters Date Type Department Care Team (Late st Contact Info) Description 10/06/2025 2:20 PM WEAVING INSPECTOR Office Visit [facility] Medical Group Pul[facility] Specialty Clinic [address] [address] Sigifredo Greene DO [address] [facility] [address] [place] [address] documented as of this encounter Visit Diagnoses Diagnosis Pre-op testing- Primary Preoperative examination, unspecified documented in this encounter Additional Health Concerns Infection Onset Date Last Indicated Resolved Time COVID-19 Rule Out 07/06/2021 07/06/2021 07/06/2021 8:04 AM CDT COVID-19 Rule Out 03/15/2022 03/15/2022 03/15/2022 8:04 AM CDT COVID-19 Rule Out 08/26/2024 08/26/2024 08/26/2024 1:58 PM WEAVING INSPECTOR Assessment Noted Time PHQ-9 Depression Total Score: 0 02/25/20 4:08 PM CDT documented as of this encounter Care Teams Bench Assembler Relationship Specialty Start Date End Date Darcy Vang APNP [address] [place], [place] [id number] PCP - General Nurse Practitioner Family 04/07/21 01/25/23 Sin Storm MD [address] [place] [address] PCP - General FAMILY PRACTICE 02/20/23 10/06/24 Nadine Grande, [facility]- [address] [place] [address] PCP - General 10/07/24 Linwood Duran MD [address] [place] [address] Consulting Physician INTERNAL MEDICINE 04/05/23 documented as of this encounter
--- OUTSIDE RECORDS SUMMARY | 2025-09-02 03:41 | XMS_ITS | Clinical Summary ---
Author Organization [facility] Address [address] [facility] [place] [address] Care Team Providers Care Kettle Tender Name Role Phone Unavailable Primary Care Provider Unavailabl e Social History Tobacco Use Types Packs/Day Years Used Date Smoking Tobacco: Never Assessed Comments Unknown Sex and Gender Information Value Date Recorded Sex Assigned at Female 08/15/2024 8:17 AM EST Legal Sex Female 12:45 PM EDT Gender Identity Female 08/15/2024 8:17 AM EST Sexual Orientation Not on file Plan of Treatment Not on file Medical Devices Not on file Insurance SAIMA RODRÍGUEZ
--- OUTSIDE RECORDS SUMMARY | 2025-09-02 03:41 | XMS_ITS | Encounter Summary ---
Author Organization [facility] Address [address] [place] [address] Care Team Providers Care Booster Station Operator Name Role Phone Darcy Vang Primary Care Provider [phone] Sin Storm MD Primary Care Provider [phone] Linwood Duran MD Unavailable Nadine Grande [facility] Primary Care Provider + Encounter Details Date Type Department Care Team (Late st Contact Info) Description 12/17/2021 MyChart Message Enc [facility] Medical Group Pul[facility]ology Specialty Clinic [address] [address] Sigifredo Greene, DO [address] [place] [address] Fasenra Social History Tobacco Use Types Packs/Day Years [...] st Contact Info) Description 10/06/2025 2:20 PM MANAGER PORTABLE Office Visit [facility] Medical [facility] [address] [phone] Sigifredo Greene DO 3 [facility] [address] [place] [address] documented as of this encounter Visit Diagnoses Not on filedocumented in this encounter Additional Health Concerns Infection Onset Date Last Indicated Resolved Time COVID-19 Rule Out 03/15/2022 03/15/2022 03/15/2022 8:04 AM CDT COVID-19 Rule Out 08/26/2024 08/26/2024 08/26/2024 1:58 PM MANAGER PORTABLE Assessment Noted Time PHQ-9 Depression Total Score: 0 02/25/20 4:08 PM CDT documented as of this encounter Care Teams Booster Station Operator Relationship Specialty Start Date End Date Darcy Vang APNP [address] [place], [place] [id number] PCP - General Nurse Practitioner Family 04/07/21 01/25/23 Sin Storm MD [address] [place] [address] PCP - General FAMILY PRACTICE 02/20/23 10/06/24 Nadine Grande, [facility]- [address] [place] [address] PCP - General 10/07/24 Linwood Duran MD [address] [place] [address] Consulting Physician INTERNAL MEDICINE 04/05/23 documented as of this encounter
--- OUTSIDE RECORDS SUMMARY | 2025-09-02 03:41 | XMS_ITS | Encounter Summary ---
Author Organization [facility] Address [facility] [place] [address] Care Team Providers Care Order Clerk Name Role Phone Darcy Vang Primary Care Provider [phone] Sin Storm MD Primary Care Provider [phone] [phone] Linwood Duran MD Unavailable Nadine Grande [facility] Primary Care Provider + Encounter Details Date Type Department Care Team (Late st Contact Info) Description 11/08/2022 Coty Message Enc [facility] Medical Group Family & Internal Medicine [address] [address] [employer], [facility] Provider Reschedule appt for today 11/08/2022 Social History Tobacco Use Types Packs/Day Years [...] st Contact Info) Description 10/06/2025 2:20 PM HOSPICE OFFICE COORDINATOR Office Visit [facility] Medical Group Pulmonology Specialty Clinic [facility] [address] [place] [address] Sigifredo Greene DO 3 [facility] [address] [place] [address] documented as of this encounter Visit Diagnoses Not on filedocumented in this encounter Additional Health Concerns Infection Onset Date Last Indicated Resolved Time COVID-19 Rule Out 08/26/2024 08/26/2024 08/26/2024 1:58 PM HOSPICE OFFICE COORDINATOR Assessment Noted Time PHQ-9 Depression Total Score: 0 02/25/20 4:08 PM CDT documented as of this encounter Care Teams Order Clerk Relationship Specialty Start Date End Date Darcy Vang APNP [address] [place] [address] PCP - General Nurse Practitioner Family 04/07/21 01/25/23 Sin Storm MD [address] [place] [address] PCP - General FAMILY PRACTICE 02/20/23 10/06/24 [facility] [address] [place] [address] PCP - General 10/07/24 Linwood Duran MD [address] [place] [phone] Consulting Physician INTERNAL MEDICINE 04/05/23 documented as of this encounter
--- OUTSIDE RECORDS SUMMARY | 2025-09-02 03:41 | XMS_ITS | Encounter Summary ---
Author Organization [facility] Address [address] [place] [address] Care Team Providers Care Shellfish Grower Name Role Phone Sin Storm MD Primary Care Provider [phone] Linwood Duran MD Unavailable Nadine Grande [facility] Primary Care Provider + Encounter Details Date Type Department Care Team (Latest Contact Info) Description 10/30/2023 Tarisat Message Enc [facility] Medical Group Gastroenterology Specialty Clinic [address] [address] Rebel Villalobos MD [address] [place] [address] Pre-Op directons Social History Tobacco Use Types Packs/Day Years [...] on file 12/2018 PHQ-2 Answer Date Recorded Patient Health Questionnaire-2 Score 0 03/08/2023 Education Answer Date Recorded What is the [...] st Contact Info) Description 10/06/2025 2:20 PM CAR REPAIRER HELPER Office Visit [facility] Medical Group Pulmonology Specialty Clinic [address] [phone] [facility]redo Greene [facility] [address] [place] [address] documented as of this encounter Visit Diagnoses Not on filedocumented in this encounter Additional Health Concerns Infection Onset Date Last Indicated Resolved Time COVID-19 Rule Out 08/26/2024 08/26/2024 08/26/2024 1:58 PM CAR REPAIRER HELPER Assessment Noted Time PHQ-9 Depression Total Score: 0 02/25/20 21 4:08 PM CDT documented as of this encounter Care Teams Shellfish Grower Relationship Specialty Start Date End Date Sin Storm MD [address] [place] [address] PCP - General FAMILY PRACTICE 02/20/23 10/06/24 Nadine Grande [facility] [address] [place] [address] PCP - General 10/07/24 Linwood Duran MD [address] [place] [address] Consulting Physician INTERNAL MEDICINE 04/05/23 documented as of this encounter
--- OUTSIDE RECORDS SUMMARY | 2025-09-02 03:41 | XMS_ITS | Encounter Summary ---
Author Organization [facility] Address Formerly [facility] [place] [address] Care Team Providers Care [employer]cast Music Librarian Name Role Phone Kwaku De MD Primary Care Provider [phone] Darcy Vang Primary Care Provider [phone] Sin Storm MD Primary Care Provider + [phone] Linwood Duran MD Unavailable Nadine Grande [facility] Primary Care Provider + Encounter Details Date Type Department Care Team (Late st Contact Info) Description 03/16/2021 Alianza Message Enc [facility] Group Family & Internal Medicine [address] [address] Cristina, [facility] Provider results Social History Tobacco Use Types Packs/Day Years Used Date Smoking Tobacco: Never Smokeless Tobacco: Never Alcohol Use Standard Drinks/Week Comments Yes 0 (1 standard drink = 0.6 oz pur e alcohol) socially AUDIT-C Answer Date Recorded Frequency of Alcohol [...] have Coronavirus / COVID-19? No / Unsure 03/15/2021 7:46 AM CDT documented as of this encounter Plan of Treatment Upcoming Encounters Date Type Department Care Team (Late st Contact Info) Description 10/06/2025 2:20 PM BLOCK CABLEMAN Office Visit [facility] Pulmonology Specialty Clinic [facility] [id number] [place] [phone] Sigifredo Greene DO [address] [facility] [address] [place] [address] documented as of this encounter Visit Diagnoses Not on filedocumented in this encounter Additional Health Concerns Infection Onset Date Last Indicated Resolved Time COVID-19 Rule Out 07/06/2021 07/06/2021 07/06/2021 8:04 AM CDT COVID-19 Rule Out 03/15/2022 03/15/2022 03/15/2022 8:04 AM CDT COVID-19 Rule Out 08/26/2024 08/26/2024 08/26/2024 1:58 PM BLOCK CABLEMAN Assessment Noted Time PHQ-9 Depression Total Score: 0 02/25/20 4:08 PM CDT documented as of this encounter Care Teams [employer] Librarian Relationship Specialty [place] [address] [place], [place] [phone] PCP - General FAMILY PRACTICE 09/24/18 04/06/21 Darcy Vang APNP [address] [place], [place] [phone] PCP - General Nurse Practitioner Family 04/07/21 01/25/23 Sin Storm MD [address] [place] [address] PCP - General FAMILY PRACTICE 02/20/23 10/06/24 Nadine Grande [facility]- [address] [place] [address] PCP - General 10/07/24 Linwood Duran MD [address] [place] [address] Consulting Physician INTERNAL MEDICINE 04/05/23 documented as of this encounter
--- OUTSIDE RECORDS SUMMARY | 2025-09-02 03:41 | XMS_ITS | Clinical Summary ---
Author Organization [facility] Address [address] [place] [address] Care Team Providers Care Mailing Machine Helper Name Role Phone Linwood Duran MD Unavailable Nadine Grande [facility] Primary Care Provider + Allergies Active Allergy Reactions Criticality Noted Date Comments Tramadol GI Upset Low 08/26/2014 Medications NEBULIZER DEVICE, DME,Indications:Mo derate persistent asthma with exacerbation (HHS/HCC) Take 1 Device by nebulization every 6 (six) hours as needed (SOB, wheezing.). 1 Device 04/28/20 20 Active ALPRAZolam XR 0.5 MG TABLET SR 24 HR 24 hr tablet 09/01/20 22 Active buPROPion XL (WELLBUTRIN XL) 150 MG 24 hr tabletIndications: Attention and concentration deficit Take 1 tablet (150 mg total) by mouth daily. 30 tablet 1 01/27/20 23 Active ondansetron (ZOFRAN-ODT) 4 MG disintegrating tabletIndications: Nausea DISSOLVE 1 TABLET IN MOUTH EVERY 8 HOURS NEEDED FOR NAUSEA 20 tablet 1 01/27/20 23 Active venlafaxine XR (EFFEXOR-XR) 75 MG 24 hr capsuleIndications :Anxiety,Current moderate episode of major depressive disorder without prior episode (CMS/HCC) Take 1 capsule (75 mg total) by mouth daily. 30 capsule 1 01/27/20 23 Active EPINEPHrine (EPIPEN 2-VIANEY) 0.3 MG/0.3ML injectionIndicatio ns:Uncomplicated asthma, unspecified asthma severity, unspecified whether persistent (HHS/HCC),Severe persistent extrinsic asthma without complication (CMS/[facility] HHS/HCC) Inject 0.3 mLs (0.3 mg total) into the muscle as needed for Anaphylaxis. 1 each 2 04/03/20 23 Active albuterol (PROVENTIL) (2.5 MG/3ML) 0.083% nebulizer solutionIndication s:Severe persistent extrinsic asthma without complication (CMS/HCC HHS/HCC) Take 3 mLs (2.5 mg total) by nebulization every 6 (six) hours as needed for Wheezing. 360 mL 6 07/31/20 23 Active fluticasone propionate (FLONASE) 50 MCG/ACT nasal spray Active saline nasal (AYR) gelIndications:All ergic rhinitis due to pollen, unspecified seasonality by Nasal route as needed. 14.1 g 04/12/20 24 Active albuterol sulfate HFA 108 (90 Base) MCG/ACT inhalerIndications :Uncomplicated asthma, unspecified asthma severity, unspecified whether persistent (HHS/HCC) inhale 2 puffs by mouth every 6 hours as needed for wheezing 8.5 g 1 06/12/20 24 Active lisdexamfetamine (VYVANSE) 30 MG capsule Take 1 capsule (30 mg total) by mouth daily. 08/13/20 24 Active QULIPTA tablet Take 1 tablet (60 mg total) by mouth daily. 08/08/20 24 Active vitamin D3 (CHOLECALCIFEROL) 1.25 mg capsule Take 1 capsule (1.25 mg total) by mouth once a week. 07/10/20 24 Active Albuterol-Budesoni de (AIRSUPRA) 90-80 MCG/ACT AerosolIndications :Severe persistent extrinsic asthma without complication ([facility]/HCC HHS/HCC) Inhale 2 puffs into the lungs every 4 (four) hours as needed. 10.7 g 6 10/21/19 25 Active TRELEGY ELLIPTA 200-62.5-25 MCG/ACT AEROSOL POWDER, BREATH ACTIVATEDIndicatio ns:Severe persistent extrinsic asthma without complication (CMS/HCC HHS/HCC) INHALE 1 PUFF INTO THE LUNGS DAILY. RINSE AND SPIT AFTER EACH USE 60 each 2 04/18/20 25 Active dupilumab (DUPIXENT) 300 mg/2 mL injectionIndicatio ns:Severe persistent extrinsic asthma without complication ([facility]/HCC [facility]) Inject 2 mLs (300 mg total) into the skin every 14 (fourteen) days. 4 mL 12 06/26/20 Active Active Problems Problem Noted Date Diagnosed Date ADHD 06/24/2025 Binge eating disorder 06/24/2025 Claudication of both lower extremities Delivery normal 06/24/2025 Episodic migraine 06/24/2025 Generalized anxiety disorder with panic attacks 06/24/2025 Gestational diabetes mellitus (GDM) 06/24/2025 Hot flashes 06/24/2025 Hyperlipidemia 06/24/2025 IUD check up 06/24/2025 Overview (06/24/2025): insertion 07/2022 Labial abscess 06/24/2025 Oligohydramnios 06/24/2025 ADIS (stress urinary incontinence, female) 2024 Suppression, menstruation 06/24/2025 UTI (urinary tract infection) 06/24/2025 Venous insufficiency 06/24/2025 Vitamin D deficiency, unspecified 06/24/2025 Eosinophilic asthma 06/24/2025 Chronic headaches 06/24/2025 Weight loss counseling, encounter for 06/24/2025 Irregular menstrual cycle 06/24/2025 Obesity 06/24/2025 Constipation, unspecified constipation type 09/05 Fecal impaction 09/26/2023 Irritable bowel syndrome with constipation 02/10 Overview (02/10/2022): Added automatically from request for surgery [id number] Generalized abdominal pain 02/10/2022 Overview (02/10/2022): Added automatically from request for surgery [id number] Atypical squamous cells of u ndetermined significance (ASCUS) on Papanicolaou smear of cervix 06/29/2020 Breakthrough bleeding 06/29/2020 Irregular periods 06/29/2020 Chronic pain of left ankle 11/20/2019 Primary insomnia 04/24/2019 Moderate persistent asthma without complication 12/10/2018 Asthma exacerbation 09/29/2017 Backache 06/14/2017 Obesity (BMI 30-39.9) 10/29/2016 Paresthesia 01/16/2014 Overview (11/12/2020): Paresthesia Paresthesia Anxiety 02/07/2013 Depression 01/04/2013 Resolved Problems Problem Noted Date Diagnosed Date Resolved Date Encounter to establish care 06/24/2025 06/30/2025 Wears contact lenses 09/29/2017 020 Wears glasses 09/29/2017 05/15/2020 Encounter for preventive health examination 04/22/2012 01/22/2020 Encounters Date Type Department Care Team Description 07/17/2025 7:59 AM MICROSOFT DYNAMICS MANAGER ARCHITECT - 07/17/2025 11:59 PM MICROSOFT DYNAMICS MANAGER ARCHITECT Hospital Encounter [facility] [address] [place] [address] Luis Sultana, AXEL Discharge Disposition: Home or Self Care (Routine Discharge) 07/17/2025 Travel 06/26/2025 Scan [facility] [facility] [employer] HEALTH INFO SRVCS Scanned, Doc Med Group 06/26/2025 Telephone [facility] [address] [address] Sigifredo Greene, DO Medication 06/25/2025 Results Follow-Up [facility] Family & Internal Medicine - [address] [address] Nidhi Rojas, PA URINALYSIS AUTO DIP, XR ABD KUB, URINE BACTERIA CULTURE 06/24/2025 4:50 PM CDT - 06/24/2025 11:59 PM CDT Hospital Encounter [facility] [address] [place] [phone] Nidhi Rojas, PA Discharge Disposition: Home or Self Care (Routine Discharge) 06/24/2025 4:33 PM CDT - 06/24/2025 4:49 PM CDT Hospital Encounter [facility] [address] [place] [phone] Nidhi Rojas, PA Discharge Disposition: Home or Self Care (Routine Discharge) 06/24/2025 4:00 PM CDT Office Visit [facility] Family & Internal Medicine [address] [address] Nidhi Rojas PA UTI (Burning with urination, low back pain, abdominal pain, odor to urine-x 10 days) 06/24/2025 Travel 06/10/2025 Telephone [facility] Pulmonology Specialty [address] [address] Sigifredo Greene DO Medication 06/05/2025 MyChart Message Enc [facility] Pulmonology Specialty [address] [address] Sigifredo Greene DO Dupixent from Last 3 Months Immunizations Immunization Administration Dates Next Due COVID-19 Vaccine (Generic) 12/10/2021(Deferred: Patient Refused) Influenza (Generic) 12/10/2021(Deferred: Patient Refused) Pneumococcal (Pneumovax 23) 03/29/2017, 7 Tdap (Generic) 05/26/2022,03/29/2017,03/29/2017 Family History Medical History Relation Comments Asthma Daughter Since she was 1 Depression Daughter Mental Health Daughter COPD Father Diabetes Father Early Father Heart Disease Father Hypertension Father Lung Disease Father Stroke Father Alzheimers Maternal Grandmother Lung Disease Maternal Grandmother Arthritis Mother Depression Mother Hypertension Mother Mental Health Mother Alcohol Abuse Paternal Uncle Drug Abuse Paternal Uncle Arthritis Sister 1 Miscarriages / Stillbirths Sister 1 Arthritis Sister 2 Diabetes Sister 2 Relation Status Comments Daughter Alive Father Maternal Grandmother Mother Alive Paternal Uncle Alive Sister 1 Alive Sister 2 Alive Social History Tobacco Use Types Packs/Day Years Used Date Smoking Tobacco: Never Passive Smoke Exposure: Past Smokeless Tobacco: Never Tobacco Cessation:Counseling Given: No Comments:non smoker Alcohol Use Standard Drinks/Week Comments Yes 2 (1 standard drink = 0.6 oz pur e alcohol) AUDIT-C Answer Date Recorded Frequency of Alcohol Consumption Monthly or less 10/08/2018 Average Number of Drinks Not on file 019 Frequency of Binge Drinking Not on file 12/2018 PHQ-2 Answer Date Recorded Patient Health Questionnaire-2 Score 0 06/24/2025 Education Answer Date Recorded What is the [...] Orientation Straight 01/22/2020 3: 58 PM CDT Last Filed Vital Signs Vital Sign Reading Time Taken Comments Blood Pressure 121/77 06/24/2025 4:09 PM CDT Pulse 80 06/24/2025 4:09 PM CDT Temperature 36.9 C (98.5 F) 06/24/2025 4:09 PM CDT Respiratory Rate 20 06/24/2025 4:09 PM CDT Oxygen Saturation 98% 06/24/2025 4:09 PM CDT Inhaled Oxygen Concentration - - Weight 103.2 kg (227 lb 9.6 oz) 06/24/2025 4:09 PM CDT Height 165.1 cm (5' 5) 06/24/2025 4:09 PM CDT Body Mass Index 37.87 06/24/2025 4:09 PM CDT Plan of Treatment Upcoming Encounters Date Type Department Care Team (Late st Contact Info) Description 10/06/2025 2:20 PM MICROSOFT DYNAMICS MANAGER ARCHITECT Office Visit [facility] Medical Group Pulmonology Specialty Clinic [address] [address] Sigifredo Greene DO [address] [place] [address] [address] [place] [address] Health Maintenance Due Date Last Done Comments Cervical Cancer Screening Pa p Smear (Age 30 to 64) Every 3 Years 1983 Annual Physical 1986 Hepatitis B Vaccines (1 of 3 - 19+ 3-dose series) 2002 HPV Vaccines (1 - 3-dose SCD M series) 2010 Cervical Cancer Screening Pa p with HPV Testing (Age 30 to 64) Every 5 Years 2013 Cervical Cancer Screening wi th HPV 2013 Pneumococcal Vaccine: Pediatrics (0 to 5 Years) and At-Risk Patients (6 to 49 Years) (2 of 2 - PCV) 03/29/2018 03/29/2017, 03/29/2017 Mammogram Screening 2023 COVID-19 Vaccine (1 - 2024-2 6 season) 2025 Influenza Adult (#1) 2025 DTaP, Tdap and Td Vaccines ( 4 - Td or Tdap) 05/26/2032 05/26/2022, 03/29/2017, 03/29/2017 Hepatitis C Completed 12/30/2018 PHQ-2 (Physician [place]) Completed 06/24/2025 Hepatitis A Vaccines Aged Out No long er eligible based on patient's age to complete this topic Meningococcal B Vaccine Aged Out No l onger eligible based on patient's age to complete this topic Meningococcal Vaccine Aged Out No luis manuel duran eligible based on patient's age to complete this topic RSV Immunizations Under 20 Months Aged Out No longer eligible b ased on patient's age to complete this topic Medical Devices Implanted Type Area Academic Affairs Manager Device Identifier Shelf Expiration Date Model / Serial / Lot Graft Bone [employer] Put[employer] 5ml - [id number] Implanted:Qty: 1 on 07/06/2021 by Toni Quintana DPM at [facility] Bone Left: Foot You.i 06/13/2024 [id number] / [id number] / Lapiplasty System 2 Implanted:Qty: 1 on 07/06/2021 by Toni Quintana DPM at [facility] Left: Foot [id number] 03/25/2024 [id number] / / [id number] Description:LEFT GREAT TOE SUPPLIER QUALITY SPECIALIST: TREACE 4 hole curved plate x2 2.7mm x 12mm rodoflo locking screw x3 2.7mm x 14mm rodolfo locking screw x4 Procedures Procedure Name Priority Date/Time Associated Diagnosis Comments CT ABD+PEL W CON Routine 07/17/2025 8:28 AM MICROSOFT DYNAMICS MANAGER ARCHITECT Unspecified abdominal pain CREATININE W/GFR Routine 07/17/2025 8:15 AM MICROSOFT DYNAMICS MANAGER ARCHITECT XR ABD KUB Routine 06/24/2025 4:48 PM CDT Left flank pain URINE BACTERIA CULTURE Routine 06/24/2025 4:22 PM CDT Suspected UTI URINALYSIS, AUTO, W/O SCOPE Routine 06/24/2025 Suspected UTI HEPATITIS C ANTIBODY STAT 12/30/2018 6:22 PM CDT from Last 3 Months or Most Recently Relevant to Health Maintenance Results * CT ABD+PEL W CON (07/17/2025 8:28 AM MICROSOFT DYNAMICS MANAGER ARCHITECT) Anatomical Region Laterality Modality Abdomen Computed Tomogra phy 07/17/2025 8:36 AM MICROSOFT DYNAMICS MANAGER ARCHITECT Impressions 07/17/2025 8:37 AM MICROSOFT DYNAMICS MANAGER ARCHITECT IMPRESSION: 1. No acute findings Ordered By: LIUS SULTANA Interpreted By: Hank Lezama MD, 07/17/2025 8:36 AM Narrative 07/17/2025 8:37 AM MICROSOFT DYNAMICS MANAGER ARCHITECT [address] [place] [address] CT ABDOMEN AND PELVIS WITH CONTRAST Exam date:07/17/2025 8:08 AM Clinical history: Abdomen pain. Technique: Dynamic helical images of the abdomen and pelvis were obtained. The patient received approximately 100 mL of Isovue 370 nonionic intravenous contrast through an IV in the right antecubital fossa. A dose lowering technique was used for this procedure, which may include, but is not limited to, dose reduction technique, automated exposure control, the use of iterative reconstruction, and ALARA (As Low As Reasonably Achievable) / Image Gently techniques. Comparison: None. FINDINGS: Images of the lower thorax demonstrate the visualized portion of the heart to appear normal. The lung bases are clear. Images of the abdomen demonstrate the overall size and morphology of the liver to be within normal limits. No hepatic lesions are observed. No ascites is seen. The gallbladder is present and normally distended. No stones are observed within its lumen and there is no evidence of cholecystitis or biliary obstruction. The pancreas, spleen, and adrenal glands appear grossly normal. The kidneys are normal in size bilaterally. There is normal symmetric enhancement after the administration of contrast. No stones or hydronephrosis is apparent. Both ureters follow normal expected course through the retroperitoneum. Images of the pelvis demonstrate the urinary bladder to appear normal. The uterus is normal in size and resides in an anteverted position in the mid pelvis. An IUD resides in the expected position.. The stomach and small bowel have a normal overall appearance. The appendix appears normal. The colon is within normal limits. No adenopathy or abnormal fluid collections are present Procedure Note Hank Lezama MD - 07/17/[address] [place] [address] CT ABDOMEN AND PELVIS WITH CONTRAST Exam date:07/17/2025 8:08 AM Clinical history: Abdomen pain. Technique: Dynamic helical images of the abdomen and pelvis were obtained.The patient received approximately 100 mL of Isovue 370 nonionicintravenous contrast through an IV in the right antecubital fossa. A doselowering technique was used for this procedure, which may include, but isnot limited to, dose reduction technique, automated exposure control, theuse of iterative reconstruction, and ALARA (As Low As ReasonablyAchievable) / Image Gently techniques. Comparison: None. FINDINGS: Images of the lower thorax demonstrate the visualized portion of the heartto appear normal. The lung bases are clear. Images of the abdomen demonstrate the overall size and morphology of theliver to be within normal limits. No hepatic lesions are observed. Noascites is seen. The gallbladder is present and normally distended. Nostones are observed within its lumen and there is no evidence ofcholecystitis or biliary obstruction. The pancreas, spleen, and adrenalglands appear grossly normal. The kidneys are normal in size bilaterally.There is normal symmetric enhancement after the administration ofcontrast. No stones or hydronephrosis is apparent. Both ureters follownormal expected course through the retroperitoneum. Images of the pelvis demonstrate the urinary bladder to appear normal. Theuterus is normal in size and resides in an anteverted position in the midpelvis. An IUD resides in the expected position.. The stomach and small bowel have a normal overall appearance. The appendixappears normal. The colon is within normal limits. No adenopathy orabnormal fluid collections are present IMPRESSION: 1. No acute findings Ordered By: LUIS SULTANA Interpreted By: Hank Lezama MD, 07/17/2025 8:36 AM Luis Sultana DECATING MACHINE OPERATOR CT Final Result * CREATININE W/GFR (07/17/2025 8:15 AM MICROSOFT DYNAMICS MANAGER ARCHITECT) CREATININE WHOLE BLOOD 0.8 0.6 - 1.3 mg/dL 07/17/2025 8:17 AM MICROSOFT DYNAMICS MANAGER ARCHITECT [facility] GFR ESTIMATE >90 >90 ml/min/1.7 3 m2 07/17/2025 8:17 AM MICROSOFT DYNAMICS MANAGER ARCHITECT [facility] 07/17/2025 8:15 AM MICROSOFT DYNAMICS MANAGER ARCHITECT Luis Sultana DECATING MACHINE OPERATOR POINT OF CARE TEST ORDERABLES Final Result Performing Organization Address City/State/[facility] Co de Phone Number [facility] [address] [facility] [place] [address], [place] * XR ABD KUB (06/24/2025 4:48 PM CDT) Anatomical Region Laterality Modality Abdomen Radiographic Sabra ging 06/24/2025 5:38 PM CDT Impressions 06/24/2025 5:40 PM CDT IMPRESSION: No acute abnormality.. Specifically no distinct calculi overlying the kidneys on this limited exam. If pain persists, follow-up with CT exam Referred By: Interpreted By: Da Munguia MD, 06/24/2025 5:38 PM Narrative 06/24/2025 5:40 PM CDT [facility] [address] [place] [address] IMAGING STUDIES: XR ABD KUB DATE: 06/24/2025 4:43 PM COMPARISON STUDIES: December 10, 2021 CLINICAL HISTORY: left flank pain hx renal stones. Additional history FINDINGS: Grossly normal gas pattern without obstruction. No intra-abdominal mass. No distinct calculi overlying the kidneys. Exam is obscured due to overlying bowel. IUD and midline pelvis.. Minor degenerative change in lumbar spine. Lung bases are clear.. Procedure Note Da Munguia MD - 06/24/2025 [facility] [address] [place] [address] IMAGING STUDIES: XR ABD KUB DATE: 06/24/2025 4:43 PM COMPARISON STUDIES: December 10, 2021 CLINICAL HISTORY: left flank pain hx renal stones. Additional history FINDINGS: Grossly normal gas pattern without obstruction. No intra-abdominal mass. No distinct calculi overlying the kidneys. Exam is obscured due tooverlying bowel. IUD and midline pelvis.. Minor degenerative change in lumbar spine. Lungbases are clear.. IMPRESSION: No acute abnormality.. Specifically no distinct calculi overlying thekidneys on this limited exam. If pain persists, follow-up with CT exam Referred By: Interpreted By: Da Munguia MD, 06/24/2025 5:38 PM us Nidhi [facility] Final Result * URINE BACTERIA CULTURE (06/24/2025 4:22 PM CDT) SPEC DESCRIPTION URINE CLEAN CATCH 06/24/2025 4:50 PM CDT [facility] SPECIAL REQUESTS NO SPECIAL REQUEST 06/24/2025 4:50 PM CDT [facility] CULTURE RESULT POLYMICROBIAL GROWTH CONSISTENT WITH NORMAL GENITAL JAYSON. SUSCEPTIBILITIES NOT ROUTINELY PERFORMED. 06/26/2025 7:03 AM CDT [facility] URINE SPECIMEN OBTAINED BY CLEAN CATCH PROCEDURE / Unknown 06/24/2025 4:22 PM CDT 06/24/2025 4:59 PM CDT us Nidhi [facility] MICROBIOLOG[facility] - GENERAL ORDER YULI Final Result [facility] [address] [place] [address], [place] [phone] [facility] () [facility] [address] [place] [address], [place] [phone] * (ABNORMAL) URINALYSIS AUTO DIP (06/24/2025) COLOR (U) DARK YELLOW YELLOW [id number], [place] TRANSPARENCY CLOUDY(A) CLEAR [id number], [place] GLUCOSE (U) NEGATIVE NEGATIVE MG/DL [id number], [facility] BILIRUBIN (U) 1+ (SMALL)(A) NEGATIVE [id number], [facility] KETONES MG/DL (U) NEGATIVE NEGATIVE MG/DL [id number], [facility] SPECIFIC GRAVITY (U) 1.030 1.001 - 1.035 MG-[id number], [place] BLOOD (U) MODERATE (2+ Hemolyzed, About 50 rbc/uL)(A) NEGATIVE MG-[id number], [place] U PH 5.5 5.0 - 9.0 MG-[id number], [place] PROTEIN (U) NEGATIVE NEGATIVE mg/dL MG-[id number], [facility] UROBILINOGEN 0.2 0.2 - 1.0 EU/dL = mg/dL MG-[address], [facility] NITRITES NEGATIVE NEGATIVE MG/DL MG-[id number], [place] LEUKOCYTES (U) NEGATIVE NEGATIVE MG-[address], [facility] URINE SPECIMEN OBTAINED BY CLEAN CATCH PROCEDURE / Unknown 06/24/2025 Nidhi [facility] URINE ORDERABLES Final Resul t Performing Organization Address City/[facility]/ZIP Co de Phone Number [id number], [facility] [address] [place] [address], [place] [phone] * HEPATITIS C ANTIBODY (12/30/2018 6:22 PM CDT) HEPATITIS C AB NON-REACTI VE NON-REACTI VE 12/31/2018 11:47 AM CDT [facility] SERUM OR PLASMA SPECIMEN / Unknown 12/30/2018 6:22 PM CDT 12/30/2018 6:32 PM CDT us Generic Conversion Md [facility] Final R esult [facility] [address] [place] [address], from Last 3 Months or Most Recently Relevant to Health Maintenance Insurance [employer] Advance Directives * Full Code (Latest Code Status on File) Date Activated Date Inactivated Comments 07/06/2021 1:00 PM 07/06/2021 5:40 PM Care Teams Mailing Machine Helper Relationship Specialty Start Date End Date Nadine Grande, [facility]- [address] [place] [address] PCP - General 10/07/24 Linwood Duran MD Consulting Physician INTERNAL MEDICINE 04/05/23
--- OUTSIDE RECORDS SUMMARY | 2025-09-02 03:41 | XMS_ITS | Encounter Summary ---
Author Organization [facility] Address [facility] [place] [address] Care Team Providers Care Food Sanitarian Name Role Phone Darcy Vang Primary Care Provider [phone] Sin Storm MD Primary Care Provider +1 [phone] Linwood Duran MD Unavailable Nadine Grande [facility] Primary Care Provider + Encounter Details Date Type Department Care Team (Late st Contact Info) Description 02/11/2022 Novalactt Message Enc [facility] Medical Group Family & Internal Medicine [facility] [address] [place] [address] Darcy Vang APNP [address] [address] BEHAVIORAL HEALTH Social History Tobacco Use Types Packs/Day Years [...] suspected to have Coronavirus/COVID-19? No / Unsure 01/21/2022 3:48 AM CDT documented as of this encounter Plan of Treatment Upcoming Encounters Date Type Department Care Team (Late st Contact Info) Description 10/06/2025 2:20 PM WATERSHED COORDINATOR Office Visit [facility] [address] [address] Sigifredo Greene DO 3 [facility] [address] [place] [address] documented as of this encounter Visit Diagnoses Not on filedocumented in this encounter Additional Health Concerns Infection Onset Date Last Indicated Resolved Time COVID-19 Rule Out 03/15/2022 03/15/2022 03/15/2022 8:04 AM CDT COVID-19 Rule Out 08/26/2024 08/26/2024 08/26/2024 1:58 PM WATERSHED COORDINATOR Assessment Noted Time PHQ-9 Depression Total Score: 0 02/25/20 4:08 PM CDT documented as of this encounter Care Teams Food Sanitarian Relationship Specialty Start Date End Date Darcy Vang APNP [address] [place] [address] PCP - General Nurse Practitioner Family 04/07/21 01/25/23 Sin Storm MD [facility] [place] [address] PCP - General FAMILY PRACTICE 02/20/23 10/06/24 Nadine Grande, [facility]- [address] [place] [address] PCP - General 10/07/24 Linwood Duran MD [address] [place] [address] Consulting Physician INTERNAL MEDICINE 04/05/23 documented as of this encounter
--- OUTSIDE RECORDS SUMMARY | 2025-09-02 03:41 | XMS_ITS | Encounter Summary ---
Author Organization [facility] Address [address] [place] [address] Care Team Providers Care Acid Dumper Name Role Phone Linwood Duran MD Unavailable Nadine Grande [facility] Primary Care Provider + Encounter Details Date Type Department Care Team (Late st Contact Info) Description 06/05/2025 Blowtorcht Message Enc [facility] Medical Group Pulmonology Specialty Clinic [facility] [address] [place] [address] Sigifredo Greene DO 3 [facility] [address] [place] [address] [employer] Social History Tobacco Use Types Packs/Day Years Used Date Smoking Tobacco: Never Passive Smoke Exposure: Past Smokeless Tobacco: Never Comments:non smoker Alcohol Use [...] st Contact Info) Description 10/06/2025 2:20 PM TAKE OFF MAN Office Visit [facility] Medical [facility] - [address] [phone] Sigifredo Greene DO 3 [facility] [address] [place] [address] documented as of this encounter Visit Diagnoses Not on filedocumented in this encounter Additional Health Concerns Assessment Noted Time PHQ-9 Depression Total Score: 0 02/25/20 21 4:08 PM CDT documented as of this encounter Care Teams Acid Dumper Relationship Specialty Start Date End Date Nadine Grande, [facility]- [address] [place] [address] PCP - General 10/07/24 Linwood Duran MD Consulting Physician INTERNAL MEDICINE 04/05/23 documented as of this encounter
--- OUTSIDE RECORDS SUMMARY | 2025-09-02 03:41 | XMS_ITS | Encounter Summary ---
Author Organization [facility] Address [facility] [place] [address] Care Team Providers Care Barrel Rifler Operator Name Role Phone Darcy Vang Primary Care Provider [phone] Sin Storm MD Primary Care Provider [phone] Linwood Duran MD Unavailable Nadine Grande [facility] Primary Care Provider + Encounter Details Date Type Department Care Team (Late st Contact Info) Description 12/06/2021 [employer] Message Enc [facility] Medical Group Family & Internal Medicine [facility] [address] [place] [address] Darcy Vang APNP [address] [address] Medication refill/location Social History Tobacco Use Types Packs/Day Years [...] suspected to have Coronavirus/COVID-19? No / Unsure 11/15/2021 8:29 AM CDT documented as of this encounter Progress Notes * Veena Boucher RN - 12/06/2021 9:49 AM CDT Ok to refill documented in this encounter Plan of Treatment Upcoming Encounters Date Type Department Care Team (Late st Contact Info) Description 10/06/2025 2:20 PM LICENSED FINAL EXPENSE AGENTS Office Visit [facility] Medical Group Pulmonology Specialty Clinic [facility] [address] [place] [address] Sigifredo Greene DO [address] [place] [address] [address] [place] [address] documented as of this encounter Visit Diagnoses Not on filedocumented in this encounter Additional Health Concerns Infection Onset Date Last Indicated Resolved Time COVID-19 Rule Out 03/15/2022 03/15/2022 03/15/2022 8:04 AM CDT COVID-19 Rule Out 08/26/2024 08/26/2024 08/26/2024 1:58 PM LICENSED FINAL EXPENSE AGENTS Assessment Noted Time PHQ-9 Depression Total Score: 0 02/25/20 21 4:08 PM CDT documented as of this encounter Care Teams Barrel Rifler Operator Relationship Specialty Start Date End Date Dacry Vang APNP [address] [place] [address] PCP - General Nurse Practitioner Family 04/07/21 01/25/23 Sin Storm MD [address] [place] [address] PCP - General FAMILY PRACTICE 02/20/23 10/06/24 Nadine Grande [facility]- [address] [place] [address] PCP - General 10/07/24 Linwood Duran MD [address] [place] [address] Consulting Physician INTERNAL MEDICINE 04/05/23 documented as of this encounter
--- OUTSIDE RECORDS SUMMARY | 2025-09-02 03:41 | XMS_ITS | Encounter Summary ---
Author Organization [facility] Address [facility] [place] [address] Care Team Providers Care Stencil Maker Name Role Phone Darcy Vang Primary Care Provider [phone] Sin Storm MD Primary Care Provider [phone] Linwood Duran MD Unavailable Nadine Grande [facility] Primary Care Provider + Encounter Details Date Type Department Care Team (Late st Contact Info) Description 07/14/2021 [employer] Message Enc [facility] Medical [facility] Family & Internal Medicine [address] [address] Mycmary lout, [facility] Provider phentermine restart Social History Tobacco Use Types Packs/Day Years [...] have Coronavirus / COVID-19? No / Unsure 07/13/2021 2:25 PM THERMOSTAT MAKER documented as of this encounter Plan of Treatment Upcoming Encounters Date Type Department Care Team (Late st Contact Info) Description 10/06/2025 2:20 PM THERMOSTAT MAKER Office Visit [facility]ty [facility] [address] [place] [address] Sigifredo Greene DO 3 [facility] [address] [place] [address] documented as of this encounter Visit Diagnoses Not on filedocumented in this encounter Additional Health Concerns Infection Onset Date Last Indicated Resolved Time COVID-19 Rule Out 03/15/2022 03/15/2022 03/15/2022 8:04 AM CDT COVID-19 Rule Out 08/26/2024 08/26/2024 08/26/2024 1:58 PM THERMOSTAT MAKER Assessment Noted Time PHQ-9 Depression Total Score: 0 02/25/20 21 4:08 PM CDT documented as of this encounter Care Teams Stencil Maker Relationship Specialty Start Date End Date Darcy Vang APNP [address] [place] [address] PCP - General Nurse Practitioner Family 04/07/21 01/25/23 Sin Storm MD [address] [place] [address] PCP - General FAMILY PRACTICE 02/20/23 10/06/24 Nadine Grande FNP- [facility] [place] [address] PCP - General 10/07/24 Linwood Duran MD [address] [place] [address] Consulting Physician INTERNAL MEDICINE 04/05/23 documented as of this encounter
--- OUTSIDE RECORDS SUMMARY | 2025-09-02 03:41 | XMS_ITS | Encounter Summary ---
Author Organization [facility] Address [address] [place] [address] Care Team Providers Care Branch Operation Evaluation Manager Name Role Phone Darcy Vang Primary Care Provider [phone] Sin Storm MD Primary Care Provider [phone] Linwood Duran MD Unavailable Nadine Grande [facility] Primary Care Provider + Encounter Details Date Type Department Care Team (Late st Contact Info) Description 10/13/2022 SingleFeedt Message Enc [facility] Medical Group Family & Internal Medicine [facility] [address] [place] [address] Darcy Vang APNP [address] [address] Appointment on 11/01/22 at 2:00 pm Social History Tobacco Use Types Packs/Day Years [...] suspected to have Coronavirus/COVID-19? No / Unsure 10/04/2022 1:49 PM ORCHARD HAND documented as of this encounter Plan of Treatment Upcoming Encounters Date Type Department Care Team (Late st Contact Info) Description 10/06/2025 2:20 PM ORCHARD HAND Office Visit [facility] Medical Group Pulmonology Specialty Clinic [facility] [address] [place] [address] Sigifredo Greene DO 3 [facility] [address] [place] [address] documented as of this encounter Visit Diagnoses Not on filedocumented in this encounter Additional Health Concerns Infection Onset Date Last Indicated Resolved Time COVID-19 Rule Out 08/26/2024 08/26/2024 08/26/2024 1:58 PM ORCHARD HAND Assessment Noted Time PHQ-9 Depression Total Score: 0 02/25/20 21 4:08 PM CDT documented as of this encounter Care Teams Branch Operation Evaluation Manager Relationship Specialty Start Date End Date Darcy Vang APNP [address] [place] [address] PCP - General Nurse Practitioner Family 04/07/21 01/25/23 Sin Storm MD [address] [place] [address] PCP - General FAMILY PRACTICE 02/20/23 10/06/24 Nadine Grande, [facility]- [address] [place] [address] PCP - General 10/07/24 Linwood Duran MD [facility] [place] [address] Consulting Physician INTERNAL MEDICINE 04/05/23 documented as of this encounter
--- OUTSIDE RECORDS SUMMARY | 2025-09-02 03:41 | XMS_ITS | Encounter Summary ---
Author Organization [facility] Address [address] [place] [address] Care Team Providers Care Communications Field Technician Name Role Phone Darcy Vang Primary Care Provider +1 [phone] Sin Storm MD Primary Care Provider [phone] [phone] Linwood Duran MD Unavailable Nadine Grande [facility] Primary Care Provider + Encounter Details Date Type Department Care Team (Latest Contact Info) Description 09/29/2021 MyChart Message Enc [facility] Medical Group [facility] Clinic [address] [address] Sigifredo Greene, DO 3 [facility] [address] [place] [address] Insurance card photo attn Margarette Social History Tobacco Use Types Packs/Day Years [...] COVID-19? Unable to assess 09/29/2021 4:49 PM WASHING TUB OPERATOR documented as of this encounter Plan of Treatment Upcoming Encounters Date Type Department Care Team (Late st Contact Info) Description 10/06/2025 2:20 PM WASHING TUB OPERATOR Office Visit [facility] Medical Group [facility] [address] [phone] Sigifredo Greene DO 3 [facility] [address] [place] [address] documented as of this encounter Visit Diagnoses Not on filedocumented in this encounter Additional Health Concerns Infection Onset Date Last Indicated Resolved Time COVID-19 Rule Out 03/15/2022 03/15/2022 03/15/2022 8:04 AM CDT COVID-19 Rule Out 08/26/2024 08/26/2024 08/26/2024 1:58 PM WASHING TUB OPERATOR Assessment Noted Time PHQ-9 Depression Total Score: 0 02/25/20 4:08 PM CDT documented as of this encounter Care Teams Communications Field Technician Relationship Specialty Start Date End Date Darcy Vang APNP [address] [place], [place] [phone] PCP - General Nurse Practitioner Family 04/07/21 01/25/23 Sin Storm MD [address] [place] [address] PCP - General FAMILY PRACTICE 02/20/23 10/06/24 Nadine Grande, [facility]- [address] [place] [address] PCP - General 10/07/24 Linwood Duran MD [address] [place] [address] Consulting Physician INTERNAL MEDICINE 04/05/23 documented as of this encounter
--- OUTSIDE RECORDS SUMMARY | 2025-09-02 03:41 | XMS_ITS | Encounter Summary ---
Author Organization [facility] Address [facility] [place] [address] Care Team Providers Care Spike Driver Name Role Phone Darcy Vang Primary Care Provider +[phone] Sin Storm MD Primary Care Provider +1 [phone] Linwood Duran MD Unavailable Nadine Grande [facility] Primary Care Provider + Encounter Details Date Type Department Care Team (Late st Contact Info) Description 03/15/2022 Bagel Nasht Message Enc [facility] Medical Group Family & Internal Medicine [facility] [address] [place] [address] Darcy Vang APNP [address] [address] Medications Social History Tobacco Use Types Packs/Day Years [...] st Contact Info) Description 10/06/2025 2:20 PM REACTOR SERVICE OPERATOR Office Visit [facility] Medical Group Pulmonology Specialty Clinic [facility] [address] [place] [phone] Sigifredo Greene DO 3 [facility] [address] [place] [address] documented as of this encounter Visit Diagnoses Not on filedocumented in this encounter Additional Health Concerns Infection Onset Date Last Indicated Resolved Time COVID-19 Rule Out 03/15/2022 03/15/2022 03/15/2022 8:04 AM CDT COVID-19 Rule Out 08/26/2024 08/26/2024 08/26/2024 1:58 PM REACTOR SERVICE OPERATOR Assessment Noted Time PHQ-9 Depression Total Score: 0 02/25/20 4:08 PM CDT documented as of this encounter Care Teams Spike Driver Relationship Specialty Start Date End Date Darcy Vang APNP [address] [place] [address] PCP - General Nurse Practitioner Family 04/07/21 01/25/23 Sin Storm MD [facility] [place] [address] PCP - General FAMILY PRACTICE 02/20/23 10/06/24 Nadine Grande, [facility]- [address] [place] [address] PCP - General 10/07/24 Linwood Duran MD [address] [place] [address] Consulting Physician INTERNAL MEDICINE 04/05/23 documented as of this encounter
[2025-09-02] MEDS: KETOROLAC 30 MG/ML VIAL (*BKC) IM (04:14)
[2025-09-02 04:27] VITALS: BP 164/99; PULSE 76; RESP 17; TEMP 36.7; O2SAT 99
[2025-09-02 04:28] VITALS: BP 164/99; PULSE 76; RESP 17; TEMP 36.7; O2SAT 99
== END 2025-09-02 04:33 | disposition home or self-care (01) ==
PROVIDERS: Emergency Provider Student in an Organized Health Care Education/Training Program; PCP Nurse Practitioner Family
DX: S92.512A Displaced fracture of proximal phalanx of left lesser toe(s), initial encounter for closed fracture (principal); I87.2 Venous insufficiency (chronic) (peripheral); F90.9 Attention-deficit hyperactivity disorder, unspecified type; F32.A Depression, unspecified; Z97.5 Presence of (intrauterine) contraceptive device; Z87.440 Personal history of urinary (tract) infections; Z79.899 Other long term (current) drug therapy; W18.09XA Striking against other object with subsequent fall, initial encounter
CPT/HCPCS: 73610; 73660; 96372; 99284; J1885